=== PATIENT | female | born 1990 | race Caucasian/White ===

== ENCOUNTER 2016-08-01 12:42 | Emergency (ER) | payer MEDICARE, MEDICAID ==
--- NOTE | 2016-08-01 13:19 | ER Document Report ---
ED Medical Screen (RME) - General Stated Complaint: HEADACHE Notes: 26 yo female c/o headache, cough, cold symptoms x 3 days. no fever. vomiting last week. TRAVEL OUTSIDE OF THE [place] IN LAST 30 DAYS: No - Related Data Allergies/Adverse Reactions: diclofenac [Diclofenac] Allergy (Unknown, Verified 01/05/15 22:50) methylphenidate HCl [From Ritalin] Allergy (Unknown, Verified 01/05/15 22:50) morphine [Morphine] Allergy (Unknown, Verified 01/05/15 22:50) Penicillins Allergy (Unknown, Verified 01/05/15 22:50) risperidone [From Risperdal M-TAB] Allergy (Unknown, Verified 01/05/15 22:50) Sulfa (Sulfonamide Antibiotics) Allergy (Unknown, Verified 01/05/15 22:50) acetaminophen Allergy (Verified 12/29/15 12:17) Past Medical History Neurological Medical History: Reports: Hx Migraine, Hx Seizures Skin Medical History: Denies Hx MRSA Psychiatric Medical History: Reports: Hx Anxiety, Hx Attention Deficit Hyperactivity Disorder, Hx Bipolar Disorder, Hx Depression, Hx Obsessive Compulsive Disorder, Hx Post Traumatic Stress Disorder, Hx Schizophrenia Traumatic Medical History: Reports: Hx Traumatic Brain Injury Infectious Medical History: Denies: Hx MRSA Past Surgical History: Reports: Hx Gynecologic Surgery, Hx Oral Surgery - Immunizations Immunizations up to date: Yes Hx Diphtheria, Pertussis, Tetanus Vaccination: Yes Physical Exam - Vital signs Vitals: Temp Pulse Resp BP Pulse Ox 98.1 F 70 20 109/56 L 100 08/01/16 13:16 08/01/16 13:16 08/01/16 13:16 08/01/16 13:16 08/01/16 13:16 Course - Vital Signs Vital signs: Temp Pulse Resp BP Pulse Ox 98.1 F 70 20 109/56 L 100 08/01/16 13:16 08/01/16 13:16 08/01/16 13:16 08/01/16 13:16 08/01/16 13:16
[2016-08-01] MEDS ORDERED: IBUPROFEN 600 MG TABLET PO ONE (16:14)
--- NOTE | 2016-08-01 16:24 | ER Document Report ---
ED General - General Chief Complaint: Headache Stated Complaint: HEADACHE Time seen by provider: 15:00 Mode of Arrival: Ambulatory Information source: Patient Notes: 26 year old female with one month history of diffuse body aches and mild headache anterior facial pain and nasal congestion sore throat earache nonproductive cough. For the first 2 weeks of symptoms she also says she had nausea vomiting diarrhea and says she has persistent nausea now but no further vomiting. Last measurement was 2 months ago and she doesn't know she is . She denies any specific chest abdominal or back pain. She denies dysuria. She denies vaginal bleeding or discharge. Physical Exam: General: Alert, appears well. HEENT: Normocephalic. Atraumatic. PERRLA. Extraocular movements intact. Tympanic membranes and canals clear. Oropharynx clear. Frontal and maxillary sinuses not tender to palpation Neck: Supple. Non-tender. No adenopathy no nuchal rigidity no stridor or hoarseness or drooling Respiratory: No respiratory distress. Clear and equal breath sounds bilaterally. Cardiovascular: Regular rate and rhythm. Abdominal: Normal Inspection. Soft, non-tender. No distension. Normal Bowel Sounds. Back: Non-tender. No deformity or step off. Extremities: Moves all four extremities. Upper extremities: Normal inspection. Non-tender. Normal color. Normal ROM. Normal temperature. Lower extremities: Normal inspection. Non-tender. No edema. Normal color. Normal ROM. Normal temperature. 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 Normal Mood. Skin: Warm. Dry. Normal color. TRAVEL OUTSIDE OF THE [place] IN LAST 30 DAYS: No - Related Data Allergies/Adverse Reactions: diclofenac [Diclofenac] Allergy (Unknown, Verified 08/01/16 13:20) methylphenidate HCl [From Ritalin] Allergy (Unknown, Verified 08/01/16 13:20) morphine [Morphine] Allergy (Unknown, Verified 08/01/16 13:20) Penicillins Allergy (Unknown, Verified 08/01/16 13:20) risperidone [From Risperdal M-TAB] Allergy (Unknown, Verified 08/01/16 13:20) Sulfa (Sulfonamide Antibiotics) Allergy (Unknown, Verified 08/01/16 13:20) acetaminophen Allergy (Verified 08/01/16 13:20) Past Medical History - Social History Smoking Status: Current Every Day Smoker Chew tobacco use (# tins/day): No Frequency of alcohol use: None Drug Abuse: None Family History: Reviewed & Not Pertinent Patient has suicidal ideation: No Patient has homicidal ideation: No Neurological Medical History: Reports: Hx Migraine, Hx Seizures Renal/ Medical History: Denies: Hx Peritoneal Dialysis Skin Medical History: Denies Hx MRSA Psychiatric Medical History: Reports: Hx Anxiety, Hx Attention Deficit Hyperactivity Disorder, Hx Bipolar Disorder, Hx Depression, Hx Obsessive Compulsive Disorder, Hx Post Traumatic Stress Disorder, Hx Schizophrenia Traumatic Medical History: Reports: Hx Traumatic Brain Injury Infectious Medical History: Denies: Hx MRSA Past Surgical History: Reports: Hx Gynecologic Surgery, Hx Oral Surgery - Immunizations Immunizations up to date: Yes Hx Diphtheria, Pertussis, Tetanus Vaccination: Yes Review of Systems - Review of Systems Constitutional: See HPI EENT: See HPI Cardiovascular: denies: Chest pain Respiratory: See HPI Gastrointestinal: See HPI Genitourinary: denies: Burning, Dysuria Female Genitourinary: Last menstrual period - 2 months ago Musculoskeletal: See HPI Neurological/Psychological: denies: Weakness, Numbness Physical Exam - Vital signs Vitals: Temp Pulse Resp BP Pulse Ox 98.1 F 70 20 109/56 L 100 08/01/16 13:16 08/01/16 13:16 08/01/16 13:16 08/01/16 13:16 08/01/16 13:16 Course - Re-evaluation Re-evalutation: 08/01/16 16:22 Patient has symptoms most consistent with viral syndrome. She is reporting persistent nausea will provide her with prescription for Phenergan as needed for that and have her follow with her primary care physician. She reports using a variety of urgent cares locally - Vital Signs Vital signs: Temp Pulse Resp BP Pulse Ox 98.1 F 70 20 109/56 L 100 08/01/16 13:16 08/01/16 13:16 08/01/16 13:16 08/01/16 13:16 08/01/16 13:16 - Laboratory Laboratory results interpreted by me: 08/01/16 16:21 Strep test and test are negative Discharge - Discharge Clinical Impression: Nausea, Viral syndrome Condition: Stable Disposition: HOME, SELF-CARE Instructions: Viral Syndrome ([facility]), Antinausea Medication ([facility]) Prescriptions: Promethazine HCl [Phenergan 25 mg Tablet] 1 tab PO Q6H PRN #15 tablet PRN Reason: Referrals: CECELIA SHARP MD [ACTIVE STAFF] - Follow up as needed
[2016-08-01 16:33] VITALS: BP 123/60
== END 2016-08-01 16:33 | disposition home or self-care (01) ==
LOC: ER 12:42
DX: B34.9 Viral infection, unspecified (principal); R11.0 Nausea; R51 Headache; R09.81 Nasal congestion; J02.9 Acute pharyngitis, unspecified; H92.09 Otalgia, unspecified ear; R05 Cough; R19.7 Diarrhea, unspecified; F17.200 Nicotine dependence, unspecified, uncomplicated; Z88.6 Allergy status to analgesic agent; Z88.0 Allergy status to penicillin; Z88.5 Allergy status to narcotic agent; Z88.2 Allergy status to sulfonamides; Z88.8 Allergy status to other drugs, medicaments and biological substances
CPT/HCPCS: 99284; 87070; 87880; 81025; 87077; A9270

== ENCOUNTER 2016-09-10 18:54 | Emergency (ER) | payer MEDICARE, MEDICAID ==
--- NOTE | 2016-09-10 20:45 | EKG REPORT ---
SEVERITY:- NORMAL ECG - SINUS RHYTHM : Confirmed by: Janette Verduzco 10-Sep-2016 20:45:12
[2016-09-10] MEDS ORDERED: IBUPROFEN 800 MG TABLET PO ONE (20:48)
[2016-09-10] MEDS ORDERED: ONDANSETRON 4 MG TAB.RAPDIS PO ONE (20:48)
--- NOTE | 2016-09-10 20:48 | ER Document Report ---
ED Medical Screen (RME) - General Stated Complaint: DIFFICULTY BREATHING/CHEST PAIN Time seen by provider: 20:45 Mode of Arrival: Ambulatory Information source: Patient Notes: 26-year-old female complaining of generalized body pain, a bad migraine, patient will dizziness, back pain, intermittent cough, and fever. The symptoms started at 3:00 this morning. She had a flu shot. No dysuria. I have greeted and performed a rapid initial assessment of this patient. A comprehensive ED assessment, evaluation of the patient, analysis of test results , and completion of the medical decision making process will be conducted by additional ED providers. TRAVEL OUTSIDE OF THE [place] IN LAST 30 DAYS: No - Related Data Allergies/Adverse Reactions: diclofenac [Diclofenac] Allergy (Unknown, Verified 08/01/16 13:20) methylphenidate HCl [From Ritalin] Allergy (Unknown, Verified 08/01/16 13:20) morphine [Morphine] Allergy (Unknown, Verified 08/01/16 13:20) Penicillins Allergy (Unknown, Verified 08/01/16 13:20) risperidone [From Risperdal M-TAB] Allergy (Unknown, Verified 08/01/16 13:20) Sulfa (Sulfonamide Antibiotics) Allergy (Unknown, Verified 08/01/16 13:20) acetaminophen Allergy (Verified 08/01/16 13:20) Past Medical History Neurological Medical History: Reports: Hx Migraine, Hx Seizures Renal/ Medical History: Denies: Hx Peritoneal Dialysis Skin Medical History: Denies Hx MRSA Psychiatric Medical History: Reports: Hx Anxiety, Hx Attention Deficit Hyperactivity Disorder, Hx Bipolar Disorder, Hx Depression, Hx Obsessive Compulsive Disorder, Hx Post Traumatic Stress Disorder, Hx Schizophrenia Traumatic Medical History: Reports: Hx Traumatic Brain Injury Infectious Medical History: Denies: Hx MRSA Past Surgical History: Reports: Hx Gynecologic Surgery, Hx Oral Surgery - Immunizations Immunizations up to date: Yes Hx Diphtheria, Pertussis, Tetanus Vaccination: Yes Physical Exam - Vital signs Vitals: Temp Pulse Resp BP Pulse Ox 99.1 F 105 H 18 120/70 99 09/10/16 19:30 09/10/16 19:30 09/10/16 19:30 09/10/16 19:30 09/10/16 19:30 Course - Vital Signs Vital signs: Temp Pulse Resp BP Pulse Ox 99.1 F 105 H 18 120/70 99 09/10/16 19:30 09/10/16 19:30 09/10/16 19:30 09/10/16 19:30 09/10/16 19:30
[2016-09-10 21:48] LABS: APPEARANCE,URINE SLIGHTLY-CLOUDY; BILIRUBIN,URINE NEGATIVE (NEGATIVE); GLUCOSE, URINE NEGATIVE (NEGATIVE); KETONES,URINE NEGATIVE (NEGATIVE); LEUKOCYTE ESTERASE,URINE NEGATIVE (NEGATIVE); NITRITE,URINE NEGATIVE (NEGATIVE); PROTEIN,URINE NEGATIVE (NEGATIVE); URINE SPECIFIC GRAVITY 1.027; UROBILINOGEN,URINE NEGATIVE mg/dL (<2.0)
[2016-09-10] MEDS ORDERED: PROMETHAZINE HCL INJ 25 MG/1 ML VIAL IM ONE (22:55)
[2016-09-10] MEDS ORDERED: OSELTAMIVIR PHOSPHATE 75 MG CAPSULE PO ONE (22:55)
--- NOTE | 2016-09-10 22:55 | ER Document Report ---
ED General Pain - General Mode of Arrival: Ambulatory Information source: Patient TRAVEL OUTSIDE OF THE [place] IN LAST 30 DAYS: No - HPI Patient complains to provider of: body pain Associated symptoms: Other - See above <IRINA RICE - Last Filed: 09/10/16 23:57> <YOSELIN MACDONALD - Last Filed: 09/11/16 05:05> - General Chief Complaint: Pain All Over Stated Complaint: body pain Notes: Patient is a 26 year old female, with a past medical history including anxiety and bipolar disorder, who presents to the emergency department complaining of general all over body pain onset today. Patient also complains of difficulty breathing, chest pain, and photophobia. Patient refuses to have the lights on in exam room stating that her head hurts when they are on. (IRINA RICE) - Related Data Allergies/Adverse Reactions: diclofenac [Diclofenac] Allergy (Unknown, Verified 09/10/16 20:46) methylphenidate HCl [From Ritalin] Allergy (Unknown, Verified 09/10/16 20:46) morphine [Morphine] Allergy (Unknown, Verified 09/10/16 20:46) Penicillins Allergy (Unknown, Verified 09/10/16 20:46) risperidone [From Risperdal M-TAB] Allergy (Unknown, Verified 09/10/16 20:46) Sulfa (Sulfonamide Antibiotics) Allergy (Unknown, Verified 09/10/16 20:46) acetaminophen Allergy (Verified 09/10/16 20:46) Past Medical History - General Information source: Patient - Social History Smoking Status: Current Every Day Smoker Frequency of alcohol use: Occasional Drug Abuse: Marijuana Family History: Reviewed & Not Pertinent Patient has suicidal ideation: No Patient has homicidal ideation: No Neurological Medical History: Reports: Hx Migraine, Hx Seizures Psychiatric Medical History: Reports: Hx Anxiety, Hx Attention Deficit Hyperactivity Disorder, Hx Bipolar Disorder, Hx Depression, Hx Obsessive Compulsive Disorder, Hx Post Traumatic Stress Disorder, Hx Schizophrenia Traumatic Medical History: Reports: Hx Traumatic Brain Injury Past Surgical History: Reports: Hx Gynecologic Surgery, Hx Oral Surgery - Immunizations Immunizations up to date: Yes Hx Diphtheria, Pertussis, Tetanus Vaccination: Yes <IRINA RICE - Last Filed: 09/10/16 23:57> Review of Systems - Review of Systems Constitutional: See HPI, Malaise EENT: No symptoms reported Cardiovascular: See HPI, Chest pain Respiratory: See HPI, Other - Difficulty breathing Gastrointestinal: No symptoms reported Genitourinary: No symptoms reported Female Genitourinary: No symptoms reported Musculoskeletal: No symptoms reported Skin: No symptoms reported Hematologic/Lymphatic: No symptoms reported Neurological/Psychological: See HPI, Headaches - photophobia -: Yes All other systems reviewed and negative <IRINA RICE - Last Filed: 09/10/16 23:57> Physical Exam - Vital signs Interpretation: Tachycardic - General General appearance: Appears well, Alert - HEENT Head: Normocephalic, Atraumatic - Respiratory Respiratory status: No respiratory distress Breath sounds: Normal - Cardiovascular Rhythm: Tachycardia Heart sounds: Normal auscultation Murmur: No - Back Back: Normal, Nontender - Extremities General upper extremity: Normal inspection General lower extremity: Normal inspection - Neurological Neuro grossly intact: Yes Cognition: Normal Orientation: AAOx4 [place] Coma Scale Eye Opening: Spontaneous [place] Coma Scale Verbal: Oriented [place] Coma Scale Motor: Obeys Commands [place] Coma Scale Total: 15 Speech: Normal - Psychological Associated symptoms: Normal affect, Normal mood - Skin Skin Temperature: Warm Skin Moisture: Dry Skin Color: Normal <IRINA RICE - Last Filed: 09/10/16 23:57> Course <IRINA RICE - Last Filed: 09/10/16 23:57> - Diagnostic Test Radiology reviewed: Reports reviewed <YOSELIN MACDONALD - Last Filed: 09/11/16 05:05> - Re-evaluation Re-evalutation: 09/11/16 Patient with influenza. Symptoms are consistent with this. Patient will be started on Tamiflu as her symptoms started today. Advised take Tylenol and ibuprofen for fever. Patient is to follow-up with her doctor as needed. Stable for discharge. Return if any worsening or concerning symptoms. (YOSELIN MACDONALD) - Vital Signs Vital signs: Temp Pulse Resp BP Pulse Ox 100.1 F 73 16 112/63 100 09/11/16 00:36 09/11/16 00:36 09/11/16 00:36 09/11/16 00:36 09/11/16 00:36 Discharge <IRINA RICE - Last Filed: 09/10/16 23:57> <YOSELIN MACDONALD - Last Filed: 09/11/16 05:05> - Discharge Clinical Impression: Influenza A Condition: Stable Disposition: HOME, SELF-CARE Instructions: Influenza ([facility]), Fever ([facility]) Prescriptions: Ondansetron [Zofran Odt 4 mg Tablet] 1 - 2 tab PO Q4H PRN #15 tab.rapdis PRN Reason: For Nausea/Vomiting Oseltamivir Phosphate [Tamiflu 75 mg Capsule] 75 mg PO BID #10 capsule Promethazine HCl [Phenergan 25 mg Tablet] 1 tab PO Q6H PRN #15 tablet PRN Reason: Forms: Return to Work Scribe Attestation: 09/11/16 05:05 I personally performed the services described in the documentation, reviewed and edited the documentation which was dictated to the scribe in my presence, and it accurately records my words and actions. (YOSELIN MACDONALD) Scribe Documentation - Scribe Written by Scrruize:: tayler Russell, 09/11/16, 0000 acting as scribe for :: Oneil <IRINA RICE - Last Filed: 09/10/16 23:57>
[2016-09-10] MEDS ORDERED: PROMETHAZINE HCL INJ 25 MG/1 ML VIAL ONE (23:31)
[2016-09-11] MEDS ORDERED: KETOROLAC TROMETHAMINE 60 MG/2 ML SDV IM ONE (00:19)
[2016-09-11 00:37] VITALS: BP 112/63
== END 2016-09-11 00:46 | disposition home or self-care (01) ==
LOC: ER 18:54
DX: J11.1 Influenza due to unidentified influenza virus with other respiratory manifestations (principal); R06.00 Dyspnea, unspecified; R07.9 Chest pain, unspecified; H53.149 Visual discomfort, unspecified; R51 Headache; R00.0 Tachycardia, unspecified; F17.200 Nicotine dependence, unspecified, uncomplicated; Z88.3 Allergy status to other anti-infective agents; Z88.8 Allergy status to other drugs, medicaments and biological substances; Z88.0 Allergy status to penicillin; Z88.6 Allergy status to analgesic agent; Z88.2 Allergy status to sulfonamides
CPT/HCPCS: 93005; 99284; 96372; 87086; 81001; 87804; 71020; 93010; J1885

== ENCOUNTER 2016-12-17 20:37 | Emergency (ER) | payer MEDICARE, MEDICAID ==
--- NOTE | 2016-12-17 22:14 | RADIOLOGY REPORT (SQ) ---
EXAM DESCRIPTION: ANKLE LEFT COMPLETE COMPLETED DATE/TIME: 12/17/2016 9:55 pm REASON FOR STUDY: pain s/p injury COMPARISON: None. NUMBER OF VIEWS: Three views. TECHNIQUE: AP, lateral, and oblique radiographic images acquired of the left ankle. LIMITATIONS: None. FINDINGS: MINERALIZATION: Normal. BONES: No acute fracture or dislocation. No worrisome bone lesions. JOINTS: No effusions. SOFT TISSUES: No soft tissue swelling. No foreign body. OTHER: No other significant finding. IMPRESSION: NO RADIOGRAPHIC EVIDENCE OF ACUTE INJURY. TECHNICAL DOCUMENTATION: JOB ID: [id number] [employer]- All Rights Reserved
--- NOTE | 2016-12-17 22:16 | RADIOLOGY REPORT (SQ) ---
EXAM DESCRIPTION: FOOT LEFT COMPLETE COMPLETED DATE/TIME: 12/17/2016 9:55 pm REASON FOR STUDY: pain s/p injury COMPARISON: None. NUMBER OF VIEWS: Three views. TECHNIQUE: AP, lateral and oblique radiographic images acquired of the left foot. LIMITATIONS: None. FINDINGS: MINERALIZATION: Normal. BONES: No acute fracture or dislocation. No worrisome bone lesions. JOINTS: No effusions. SOFT TISSUES: No soft tissue swelling. No foreign body. OTHER: No other significant finding. IMPRESSION: NO RADIOGRAPHIC EVIDENCE OF ACUTE INJURY. TECHNICAL DOCUMENTATION: JOB ID: [id number] [employer]- All Rights Reserved
[2016-12-17] MEDS ORDERED: NAPROXEN 250 MG TABLET PO ONE (23:14)
--- NOTE | 2016-12-17 23:15 | ER Document Report ---
HPI - HPI Patient complains to provider of: left foot pain Pain Level: 5 Context: Patient is a 26-year-old female who comes emergency department with chief complaint of left foot/ankle injury. Patient states she accidentally inverted her foot while she was playing roughhousing with her boyfriend. Patient states she felt a pop and she states that she feels like the area is swollen and she has some numbness in her foot. Patient denies any other injuries. - CARDIOVASCULAR Cardiovascular: DENIES: Chest pain - REPRODUCTIVE Reproductive: DENIES: : - DERM Skin Color: Normal, [place] Past Medical History - General Information source: Patient - Social History Smoking Status: Current Every Day Smoker Frequency of alcohol use: Occasional Drug Abuse: None Lives with: Family Family History: Reviewed & Not Pertinent Neurological Medical History: Reports: Hx Migraine, Hx Seizures Renal/ Medical History: Denies: Hx Peritoneal Dialysis Skin Medical History: Denies Hx MRSA Psychiatric Medical History: Reports: Hx Anxiety, Hx Attention Deficit Hyperactivity Disorder, Hx Bipolar Disorder, Hx Depression, Hx Obsessive Compulsive Disorder, Hx Post Traumatic Stress Disorder, Hx Schizophrenia Traumatic Medical History: Reports: Hx Traumatic Brain Injury Infectious Medical History: Denies: Hx MRSA Past Surgical History: Reports: Hx Gynecologic Surgery, Hx Oral Surgery - Immunizations Immunizations up to date: Yes Hx Diphtheria, Pertussis, Tetanus Vaccination: Yes Vertical Provider Document - CONSTITUTIONAL General Appearance: No Apparent Distress, Thin - INFECTION CONTROL TRAVEL OUTSIDE OF THE [place] IN LAST 30 DAYS: No - HEENT HEENT: Atraumatic, Normocephalic - NECK Neck: Normal Inspection - RESPIRATORY Respiratory: Breath Sounds Normal, No Respiratory Distress O2 Sat by Pulse Oximetry: 100 - CARDIOVASCULAR Cardiovascular: Regular Rate, Regular Rhythm - GI/ABDOMEN Gastrointestinal: Abdomen Soft, Abdomen Non-Tender - MUSCULOSKELETAL/EXTREMETIES Musculoskeletal/Extremeties: Tender - Unremarkable lower extremity exam otherwise. There is general tenderness over the dorsal aspect of the left foot , no swelling noted, normal distal neurovascular exam except patient states that she feels numbness in each place on the foot she is touched. Course - Re-evaluation Re-evalutation: Patient is fairly dramatic and yells whenever I touch the foot, I do not appreciate any soft tissue swelling, range of motion deficit; capillary refill is normal, pulse intact, LE exam generally unremarkable. X-ray imaging shows no acute abnormalities. Patient will be placed in splint for comfort, given crutches, given instructions for treatment of sprain, discussed these in detail with patient, she states understanding and agreement. - Vital Signs Vital signs: Temp Pulse Resp BP Pulse Ox 98.4 F 90 20 126/78 H 100 12/17/16 21:04 12/17/16 21:04 12/17/16 21:04 12/17/16 21:04 12/17/16 21:04 - Diagnostic Test Radiology reviewed: Image reviewed, Reports reviewed Procedures - Immobilization Left ankle Pre-Proc Neuro Vasc Exam: Normal Immobilizer type: Ankle stirrup Performed by: RN Post-Proc Neuro Vasc Exam: Normal Alignment checked and good: Yes Discharge - Discharge Clinical Impression: Left ankle injury Qualifiers: Encounter type: initial encounter Qualified Code(s): S99.912A - Unspecified injury of left ankle, initial encounter Condition: Stable Disposition: HOME, SELF-CARE Additional Instructions: X-rays show no fracture or concerning abnormality. Examination is consistent with ankle sprain. Ice, elevate when possible, take over the counter anti-inflammatory, use the crutches for the first 3 days. If symptoms continue follow up with Orthopedics. Return to the ED for any concerning symptoms. Prescriptions: Naproxen [Naprosyn 375 Mg Tablet] 375 mg PO BID #20 tablet
[2016-12-18 00:08] VITALS: BP 109/64
== END 2016-12-18 00:08 | disposition home or self-care (01) ==
LOC: ER 20:37
DX: S99.912A Unspecified injury of left ankle, initial encounter (principal); M79.672 Pain in left foot; R20.0 Anesthesia of skin; X50.0XXA Overexertion from strenuous movement or load, initial encounter; Y93.83 Activity, rough housing and horseplay; F17.200 Nicotine dependence, unspecified, uncomplicated
CPT/HCPCS: 99283; 73610; 73630; L4350; A9270

== ENCOUNTER 2017-01-27 17:38 | Emergency (ER) | payer MEDICARE, MEDICAID ==
[2017-01-27] MEDS ORDERED: DIPHENHYDRAMINE HCL 50 MG/ML VIAL IV ONE (18:03)
[2017-01-27] MEDS ORDERED: DEXAMETHASONE SOD PHOS INJ 10 MG/1 ML VIAL IV ONE (18:04)
[2017-01-27] MEDS ORDERED: FAMOTIDINE INJ/PF 20 MG/2 ML SDV IV ONE (18:04)
--- NOTE | 2017-01-27 18:08 | ER Document Report ---
ED Allergic Reaction - General Chief Complaint: Allergic Reaction Stated Complaint: POSSIBLE ALLERGIC REACTION Time Seen by Provider: 01/27/17 17:57 Mode of Arrival: Ambulatory Information source: Patient TRAVEL OUTSIDE OF THE [place] IN LAST 30 DAYS: No - HPI Onset: This morning - NOTED RASH THIS A.M. AFTER SHOWERING, ONSET OF ITCHING 3 HRS AGO, INCREASING ITCHING DISCOMFORT Onset/Duration: Gradual Quality of pain: No pain Severity: Moderate Identified cause: No Skin rash / itching: Trunk, Extremities, Diffuse Swelling: Throat - FEELS SWOLLEN Associated symptoms: Lightheaded Similar symptoms previously: Yes - NOT RECENT Recently seen / treated by doctor: No - Related Data Allergies/Adverse Reactions: diclofenac [Diclofenac] Allergy (Unknown, Verified 09/10/16 20:46) methylphenidate HCl [From Ritalin] Allergy (Unknown, Verified 09/10/16 20:46) morphine [Morphine] Allergy (Unknown, Verified 09/10/16 20:46) Penicillins Allergy (Unknown, Verified 09/10/16 20:46) risperidone [From Risperdal M-TAB] Allergy (Unknown, Verified 09/10/16 20:46) Sulfa (Sulfonamide Antibiotics) Allergy (Unknown, Verified 09/10/16 20:46) acetaminophen Allergy (Verified 09/10/16 20:46) Past Medical History - General Information source: Patient - Social History Smoking Status: Current Every Day Smoker Cigarette use (# per day): Yes Chew tobacco use (# tins/day): No Smoking Education Provided: No Frequency of alcohol use: Occasional Drug Abuse: None Lives with: Spouse/Significant other Family History: Reviewed & Not Pertinent Patient has suicidal ideation: No Patient has homicidal ideation: No - Past Medical History Cardiac Medical History: Reports: None Pulmonary Medical History: Reports: None Neurological Medical History: Reports: Hx Migraine, Hx Seizures Endocrine Medical History: Reports: None Renal/ Medical History: Reports: None. Denies: Hx Peritoneal Dialysis Malignancy Medical History: Reports: None GI Medical History: Reports: None Musculoskeltal Medical History: Reports None Skin Medical History: Denies Hx MRSA Psychiatric Medical History: Reports: Hx Anxiety, Hx Attention Deficit Hyperactivity Disorder, Hx Bipolar Disorder, Hx Depression, Hx Obsessive Compulsive Disorder, Hx Post Traumatic Stress Disorder, Hx Schizophrenia Traumatic Medical History: Reports: Hx Traumatic Brain Injury Infectious Medical History: Denies: Hx MRSA Past Surgical History: Reports: Hx Gynecologic Surgery, Hx Oral Surgery - Immunizations Immunizations up to date: Yes Hx Diphtheria, Pertussis, Tetanus Vaccination: Yes Review of Systems - Review of Systems Constitutional: Weakness EENT: No symptoms reported Cardiovascular: Lightheaded Respiratory: Short of breath - SLIGHT Gastrointestinal: No symptoms reported Genitourinary: No symptoms reported Female Genitourinary: No symptoms reported Musculoskeletal: No symptoms reported Skin: See HPI Neurological/Psychological: No symptoms reported Physical Exam - Vital signs Vitals: Temp Pulse Resp BP Pulse Ox 98.4 F 80 18 115/65 96 01/27/17 17:42 01/27/17 17:42 01/27/17 17:42 01/27/17 17:42 01/27/17 17:42 Interpretation: Normal. No: Tachycardic, Hypoxic, Tachypneic - General General appearance: Appears well, Alert, Anxious In distress: None - HEENT Head: Normocephalic Eyes: Normal Conjunctiva: Normal Ears: Normal Nasal: Normal Mouth/Lips: Normal Mucous membranes: Normal Pharynx: Normal Neck: Normal - Respiratory Respiratory status: No respiratory distress Breath sounds: Normal - Cardiovascular Rhythm: Regular Heart sounds: Normal auscultation Murmur: No - Abdominal Inspection: Normal Distension: No distension Bowel sounds: Normal - Back Back: Normal - Extremities General upper extremity: Normal inspection General lower extremity: Normal inspection - Neurological Neuro grossly intact: Yes Cognition: Normal Orientation: AAOx4 - Psychological Associated symptoms: Normal affect, Normal mood - Skin Skin Temperature: Warm Skin Moisture: Dry Skin Color: Normal Skin Turgor: Elastic Skin irregularity: other - SCORES OF ROUND ERYTHEMATOUS LESIONS WIDELY SCATTERED ON EXTREMITIES AND TORSO, ROUND, VARIOUS SIZES, SLIGHTLY NODULAR. Location of irregularity: Generalized Character of irregularity: Macular, Erythematous. negative: Vesicular, Petechial, Urticarial Irregularity with: Tenderness, Inflammation Course - Vital Signs Vital signs: Temp Pulse Resp BP Pulse Ox 98.4 F 80 23 H 127/85 H 99 01/27/17 17:42 01/27/17 17:42 01/27/17 19:01 01/27/17 19:00 01/27/17 19:01 - Laboratory Result Diagrams: 01/27/17 19:05 01/27/17 19:05 Laboratory results interpreted by me: 01/27/17 01/27/17 18:05 19:05 Chloride 108 H Urine Ketones TRACE H Discharge - Discharge Clinical Impression: Allergic reaction Qualifiers: Encounter type: initial encounter Qualified Code(s): T78.40XA - Allergy, unspecified, initial encounter Condition: Stable Disposition: HOME, SELF-CARE Instructions: Acute Allergic Reaction ([facility]), Intravenous (IV) Fluids ([facility]), Use of Diphenhydramine, Corticosteroid Medication ([facility]) Additional Instructions: TAKE BENADRYL, 25-50 mg EVERY 4 TO 6 HOURS IF NEEDED FOR ITCHING. APPLY SMALL AMOUNT OF TRIAMCINOLONE CREAM TO ITCHY AREAS OF SKIN 3 OR 4 TIMES A DAY IF NEEDED. TRY TO AVOID SCRATCHING, THIS WILL CAUSE MORE INFLAMMATION AND ACTUALLY INCREASE ITCHING. RETURN TO E.R. IF PROBLEMS. Prescriptions: Triamcinolone Acetonide 15 gm TP TID #15 cream.gm.
[2017-01-27 18:35] LABS: APPEARANCE,URINE CLEAR; BILIRUBIN,URINE NEGATIVE (NEGATIVE); GLUCOSE, URINE NEGATIVE (NEGATIVE); KETONES,URINE TRACE mg/dL (NEGATIVE); LEUKOCYTE ESTERASE,URINE NEGATIVE (NEGATIVE); NITRITE,URINE NEGATIVE (NEGATIVE); PROTEIN,URINE NEGATIVE (NEGATIVE); UROBILINOGEN,URINE NEGATIVE mg/dL (<2.0)
[2017-01-27 19:21] LABS: ABSOLUTE BASOPHILS # (AUTO) 0.1 10^3/uL (0.0-0.2); ABSOLUTE EOSINOPHILS # (AUTO) 0.2 10^3/uL (0.0-0.6); ABSOLUTE MONOCYTES (AUTO) 0.4 10^3/uL (0.1-1.4); ABSOLUTE NEUT (AUTO) 4.6 10^3/uL (1.7-8.2); BASOPHILS % (AUTO) 0.7 % (0-2); EOSINOPHILS % (AUTO) 2.6 % (0-6); HEMATOCRIT 39.2 % (36.0-47.0); HEMOGLOBIN 13.3 g/dL (12.0-15.5); HGB HCT DIFFERENCE 0.7; MEAN CORPUSCULAR HEMOGLOBIN 31.7 pg (27.0-33.4); MEAN CORPUSCULAR VOLUME 93 fl (80-97); MONOCYTES % (AUTO) 6.1 % (3-13); RED BLOOD COUNT 4.21 10^6/uL (3.72-5.28); RED CELL DISTRIBUTION WIDTH 12.8 % (11.5-14.0); SEGMENTED NEUTROPHILS % (AUTO) 63.6 % (42-78); WHITE BLOOD COUNT 7.3 10^3/uL (4.0-10.5)
[2017-01-27 19:42] LABS: ALANINE AMINOTRANSFERASE 37 U/L (9-52); ALBUMIN 4.3 g/dL (3.5-5.0); ALKALINE PHOSPHATASE 68 U/L (38-126); ANION GAP 11 (5-19); ASPARTATE AMINO TRANSFERASE 23 U/L (14-36); BILIRUBIN,DIRECT 0.3 mg/dL (0.0-0.4); BILIRUBIN,TOTAL 0.7 mg/dL (0.2-1.3); BLOOD UREA NITROGEN 10 mg/dL (7-20); CALCIUM 9.4 mg/dL (8.4-10.2); CARBON DIOXIDE 23 mmol/L (22-30); CHLORIDE 108 mmol/L (98-107); CREATININE RESULT 0.68 mg/dL (0.52-1.25); GLUCOSE 86 mg/dL (75-110); POTASSIUM 3.8 mmol/L (3.6-5.0); SODIUM 141.9 mmol/L (137-145); TOTAL PROTEIN 7.4 g/dL (6.3-8.2)
[2017-01-27] MEDS ORDERED: DIAZEPAM 5 MG TABLET PO ONE (20:02)
[2017-01-27 20:48] VITALS: BP 124/79
== END 2017-01-27 20:45 | disposition home or self-care (01) ==
LOC: ER 17:38
DX: T78.40XA Allergy, unspecified, initial encounter (principal); R21 Rash and other nonspecific skin eruption; X58.XXXA Exposure to other specified factors, initial encounter; F17.210 Nicotine dependence, cigarettes, uncomplicated
CPT/HCPCS: 99283; 96374; 96375; 36415; 85025; 80053; 81001; A9270; J1200; S0028; J1100

== ENCOUNTER 2017-02-04 22:51 | Emergency (ER) | payer OTHER, MEDICARE, MEDICAID ==
[2017-02-04 23:22] VITALS: BP 123/67
[2017-02-05] MEDS ORDERED: DIPHENHYDRAMINE HCL 50 MG CAPSULE PO ONE (00:31)
[2017-02-05] MEDS ORDERED: METOCLOPRAMIDE HCL 10 MG TABLET PO ONE (00:31)
--- NOTE | 2017-02-05 00:31 | ER Document Report ---
ED General - General Chief Complaint: Headache >24 hrs old Stated Complaint: HEAD INJURY Time Seen by Provider: 02/05/17 00:16 Notes: Patient is a pleasant 26-year-old female who said 3 days ago she was weeding and a small bubble hit her in the forehead. She was briefly days. She has had some photophobia and headache since. No vomiting. No fevers. She did have a area of swelling to her forehead which has since gone away. She also says she can feel different over her forehead. No other complaints at this time. TRAVEL OUTSIDE OF THE [place] IN LAST 30 DAYS: No - Related Data Allergies/Adverse Reactions: diclofenac [Diclofenac] Allergy (Unknown, Verified 02/04/17 23:19) methylphenidate HCl [From Ritalin] Allergy (Unknown, Verified 02/04/17 23:19) morphine [Morphine] Allergy (Unknown, Verified 02/04/17 23:19) Penicillins Allergy (Unknown, Verified 02/04/17 23:19) risperidone [From Risperdal M-TAB] Allergy (Unknown, Verified 02/04/17 23:19) Sulfa (Sulfonamide Antibiotics) Allergy (Unknown, Verified 02/04/17 23:19) acetaminophen Allergy (Verified 02/04/17 23:19) Past Medical History - Social History Smoking Status: Unknown if Ever Smoked Frequency of alcohol use: None Drug Abuse: None Family History: Reviewed & Not Pertinent Neurological Medical History: Reports: Hx Migraine, Hx Seizures Renal/ Medical History: Denies: Hx Peritoneal Dialysis Skin Medical History: Denies Hx MRSA Psychiatric Medical History: Reports: Hx Anxiety, Hx Attention Deficit Hyperactivity Disorder, Hx Bipolar Disorder, Hx Depression, Hx Obsessive Compulsive Disorder, Hx Post Traumatic Stress Disorder, Hx Schizophrenia Traumatic Medical History: Reports: Hx Traumatic Brain Injury Infectious Medical History: Denies: Hx MRSA Past Surgical History: Reports: Hx Gynecologic Surgery, Hx Oral Surgery - Immunizations Immunizations up to date: Yes Hx Diphtheria, Pertussis, Tetanus Vaccination: Yes Review of Systems - Review of Systems Notes: My Normal Review Basic REVIEW OF SYSTEMS: CONSTITUTIONAL : Denies fever, chills, or sweats. Denies recent illness. CARDIOVASCULAR: Denies chest pain. RESPIRATORY: Denies cough, cold, or chest congestion. Denies shortness of breath, difficulty breathing, or wheezing. GASTROINTESTINAL: Denies abdominal pain. Denies nausea, vomiting, or diarrhea. Denies constipation. MUSCULOSKELETAL: Denies neck or back pain or joint pain or swelling. SKIN: Denies rash or skin lesions. NEUROLOGICAL: Denies altered mental status or loss of consciousness. Intermittent headache. Denies weakness or paralysis or loss of use of either side. Denies problems with gait or speech. Denies sensory or motor loss. ALL OTHER SYSTEMS REVIEWED AND NEGATIVE. Physical Exam - Vital signs Vitals: Temp Pulse Resp BP Pulse Ox 97.7 F 72 20 123/67 100 02/04/17 23:19 02/04/17 23:19 02/04/17 23:19 02/04/17 23:19 02/04/17 23:19 - Notes Notes: General Appearance: Well nourished, alert, cooperative, no acute distress, no obvious discomfort. Vitals: reviewed, See vital signs table. Head: no swelling or tenderness to the head. The patient has no divot to palpation. The are she is concerned with is actulaay over one of her cranial sutures and is the same on the other side. Eyes: PERRL, EOMI, Conjuctiva clear Mouth: No decreasd moisture Abdomen: Normal BS, soft, No rigidity, No abdominal tenderness, No guarding, no rebound, no abdominal masses, no organomegaly Extremities: strength 5/5 in all extremities, good pulses in all extremities, no swelling or tenderness in the extremities, no edema. Skin: warm, dry, appropriate color, no rash Neuro: speech clear, oriented x 3, normal affect, responds appropriately to questions. Cranial nerves II through XII are intact. Distal sensation intact. Patient moves all extremities without difficulty. Course - Re-evaluation Re-evalutation: 02/05/17 06:17 Patient has findings consistent with concussion. I do not feel she is CT scan of her head that she is acting appropriately, has no loss consciousness, has no vomiting, and has no neurologic deficits. Patient encouraged to return to ER if she develops severe worsening headaches or vomiting. Patient agrees with plan and will be discharged home. Dictation of this chart was performed using voice recognition software; therefore, there may be some unintended grammatical errors. - Vital Signs Vital signs: Temp Pulse Resp BP Pulse Ox 97.7 F 72 20 123/67 100 02/04/17 23:19 02/04/17 23:19 02/04/17 23:19 02/04/17 23:19 02/04/17 23:19 Discharge - Discharge Clinical Impression: Concussion Qualifiers: Encounter type: initial encounter Loss of consciousness presence/duration: without LOC Qualified Code(s): S06.0X0A - Concussion without loss of consciousness, initial encounter Condition: Good Disposition: HOME, SELF-CARE Additional Instructions: Concussion You have suffered a concussion -- a temporary loss of certain brain functions due to a mild brain injury. The recovery is usually rapid and complete. The temporary problems occurring with a concussion can include loss of consciousness, dizziness, nausea, vomiting, and confusion. Repeat concussions can cause brain damage. In the future, avoid activities that will cause a blow to your head. Wear a helmet for sports such as snowboarding, biking, or skating. It's important that someone be with you for the first 24 hours. During this time, do not exercise or drive a vehicle. Do not take any pain medication stronger than acetaminophen unless prescribed by the physician. Any significant changes should be reported immediately to the physician. Signs of a problem may include: (1) Mental confusion (2) Incoordination or staggering (3) Repeated or forceful vomiting (4) Clear or bloody drainage from ear, mouth, or nose (5) Severe headache, not relieved by acetaminophen or prescribed pain medication (6) Failure to improve in 24 hours Please follow up with a doctor in 1 week for reevaluation. Do not drive or operate machinery when taking the prescribed medicaiton as it will make you drowsy. Prescriptions: Diphenhydramine HCl [Benadryl] 25 mg PO Q6 PRN #30 capsule PRN Reason: Metoclopramide HCl [Reglan 10 mg Tablet] 1 tab PO ASDIR PRN #25 tablet PRN Reason: Forms: Return to Work
== END 2017-02-05 00:50 | disposition home or self-care (01) ==
LOC: ER 22:51
DX: S06.0X0A Concussion without loss of consciousness, initial encounter (principal); R51 Headache; H53.149 Visual discomfort, unspecified; X58.XXXA Exposure to other specified factors, initial encounter
CPT/HCPCS: 99283

== ENCOUNTER 2017-02-18 08:15 | Emergency (ER) | payer MEDICARE, MEDICAID ==
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
[2017-02-18 09:41] LABS: APPEARANCE,URINE SLIGHTLY-CLOUDY; BILIRUBIN,URINE NEGATIVE (NEGATIVE); GLUCOSE, URINE NEGATIVE (NEGATIVE); KETONES,URINE NEGATIVE (NEGATIVE); LEUKOCYTE ESTERASE,URINE NEGATIVE (NEGATIVE); NITRITE,URINE NEGATIVE (NEGATIVE); PROTEIN,URINE NEGATIVE (NEGATIVE); URINE SPECIFIC GRAVITY 1.017; UROBILINOGEN,URINE NEGATIVE mg/dL (<2.0)
[2017-02-18 10:26] VITALS: BP 108/62
== END 2017-02-18 10:26 | disposition home or self-care (01) ==
LOC: ER 08:15
DX: M79.1 Myalgia (principal); T88.7XXA Unspecified adverse effect of drug or medicament, initial encounter; S09.90XA Unspecified injury of head, initial encounter; W22.8XXA Striking against or struck by other objects, initial encounter; Z79.899 Other long term (current) drug therapy; F17.210 Nicotine dependence, cigarettes, uncomplicated
CPT/HCPCS: 81001; 81025; 99283

== ENCOUNTER 2017-04-17 13:31 | Emergency (ER) | payer MEDICARE, MEDICAID ==
[2017-04-17 14:59] LABS: ABSOLUTE BASOPHILS # (AUTO) 0.1 10^3/uL (0.0-0.2); ABSOLUTE EOSINOPHILS # (AUTO) 0.3 10^3/uL (0.0-0.6); ABSOLUTE LYMPHOCYTES (AUTO) 1.7 10^3/uL (0.5-4.7); ABSOLUTE MONOCYTES (AUTO) 0.6 10^3/uL (0.1-1.4); ABSOLUTE NEUT (AUTO) 4.2 10^3/uL (1.7-8.2); BASOPHILS % (AUTO) 0.7 % (0-2); EOSINOPHILS % (AUTO) 3.9 % (0-6); HEMATOCRIT 42.6 % (36.0-47.0); HEMOGLOBIN 14.4 g/dL (12.0-15.5); HGB HCT DIFFERENCE 0.6; LYMPHOCYTES % (AUTO) 24.9 % (13-45); MEAN CORPUSCULAR HGB CONC 33.8 g/dL (32.0-36.0); MEAN CORPUSCULAR VOLUME 92 fl (80-97); MONOCYTES % (AUTO) 8.4 % (3-13); RED BLOOD COUNT 4.64 10^6/uL (3.72-5.28); RED CELL DISTRIBUTION WIDTH 12.7 % (11.5-14.0); SEGMENTED NEUTROPHILS % (AUTO) 62.1 % (42-78); WHITE BLOOD COUNT 6.7 10^3/uL (4.0-10.5)
[2017-04-17 15:46] LABS: APPEARANCE,URINE SLIGHTLY-CLOUDY; BILIRUBIN,URINE NEGATIVE (NEGATIVE); GLUCOSE, URINE NEGATIVE (NEGATIVE); KETONES,URINE NEGATIVE (NEGATIVE); LEUKOCYTE ESTERASE,URINE NEGATIVE (NEGATIVE); NITRITE,URINE NEGATIVE (NEGATIVE); PROTEIN,URINE NEGATIVE (NEGATIVE); URINE SPECIFIC GRAVITY 1.025; UROBILINOGEN,URINE NEGATIVE mg/dL (<2.0)
[2017-04-17 16:12] LABS: ALANINE AMINOTRANSFERASE 19 U/L (9-52); ALBUMIN 4.4 g/dL (3.5-5.0); ALKALINE PHOSPHATASE 55 U/L (38-126); ANION GAP 11 (5-19); ASPARTATE AMINO TRANSFERASE 19 U/L (14-36); BILIRUBIN,DIRECT 0.5 mg/dL (0.0-0.4); BILIRUBIN,TOTAL 1.1 mg/dL (0.2-1.3); BLOOD UREA NITROGEN 11 mg/dL (7-20); CALCIUM 9.7 mg/dL (8.4-10.2); CARBON DIOXIDE 29 mmol/L (22-30); CHLORIDE 105 mmol/L (98-107); CREATININE RESULT 0.66 mg/dL (0.52-1.25); GLUCOSE 75 mg/dL (75-110); POTASSIUM 4.4 mmol/L (3.6-5.0); SODIUM 144.9 mmol/L (137-145); TOTAL PROTEIN 7.2 g/dL (6.3-8.2)
--- NOTE | 2017-04-17 16:49 | ER Document Report ---
ED General - General Chief Complaint: Abdominal Pain Stated Complaint: FALL/LOW BACK PAIN,ABDOMINAL PAIN Time Seen by Provider: 04/17/17 14:13 Mode of Arrival: Ambulatory Information source: Patient Notes: Patient states that she had some vaginal bleeding today after falling in the shower. Patient states that she believes she is and is concerned because of the bleeding after the fall. She has some mild right hip pain from the fall. It is constant. It is worse with movement and better with rest. It does radiate on the right leg. It has been constant. She denies any abdominal pain or any other symptoms. TRAVEL OUTSIDE OF THE [place] IN LAST 30 DAYS: No - Related Data Allergies/Adverse Reactions: diclofenac [Diclofenac] Allergy (Unknown, Verified 04/17/17 13:45) methylphenidate HCl [From Ritalin] Allergy (Unknown, Verified 04/17/17 13:45) morphine [Morphine] Allergy (Unknown, Verified 04/17/17 13:45) Penicillins Allergy (Unknown, Verified 04/17/17 13:45) risperidone [From Risperdal M-TAB] Allergy (Unknown, Verified 04/17/17 13:45) Sulfa (Sulfonamide Antibiotics) Allergy (Unknown, Verified 04/17/17 13:45) acetaminophen Allergy (Verified 04/17/17 13:45) Past Medical History - General Information source: Patient - Social History Smoking Status: Current Every Day Smoker Chew tobacco use (# tins/day): No Frequency of alcohol use: Rare Family History: Reviewed & Not Pertinent Neurological Medical History: Reports: Hx Migraine, Hx Seizures Renal/ Medical History: Denies: Hx Peritoneal Dialysis Skin Medical History: Denies Hx MRSA Psychiatric Medical History: Reports: Hx Anxiety, Hx Attention Deficit Hyperactivity Disorder, Hx Bipolar Disorder, Hx Depression, Hx Obsessive Compulsive Disorder, Hx Post Traumatic Stress Disorder, Hx Schizophrenia Traumatic Medical History: Reports: Hx Traumatic Brain Injury Infectious Medical History: Denies: Hx MRSA Past Surgical History: Reports: Hx Gynecologic Surgery, Hx Oral Surgery - Immunizations Immunizations up to date: Yes Hx Diphtheria, Pertussis, Tetanus Vaccination: Yes Review of Systems - Review of Systems Constitutional: denies: Chills, Fever Cardiovascular: denies: Chest pain, Palpitations Respiratory: denies: Cough, Short of breath -: Yes All other systems reviewed and negative Physical Exam - Vital signs Vitals: Temp Pulse BP Pulse Ox 98.6 F 77 104/66 99 04/17/17 13:46 04/17/17 13:46 04/17/17 13:46 04/17/17 13:46 Interpretation: Normal - General General appearance: Appears well, Alert - HEENT Head: Normocephalic, Atraumatic Eyes: Normal Pupils: PERRL - Respiratory Respiratory status: No respiratory distress Chest status: Nontender Breath sounds: Normal Chest palpation: Normal - Cardiovascular Rhythm: Regular Heart sounds: Normal auscultation Murmur: No - Abdominal Inspection: Normal Distension: No distension Bowel sounds: Normal Tenderness: Nontender Organomegaly: No organomegaly - Back Back: Normal, Nontender - Extremities General upper extremity: Normal inspection, Nontender, Normal color, Normal ROM , Normal temperature General lower extremity: Normal inspection, Nontender, Normal color, Normal ROM , Normal temperature, Normal weight bearing. No: Pedrito's sign - Neurological Neuro grossly intact: Yes Cognition: Normal Orientation: AAOx4 Tammy Coma Scale Eye Opening: Spontaneous [place] Coma Scale Verbal: Oriented [place] Coma Scale Motor: Obeys Commands Tammy Coma Scale Total: 15 Speech: Normal Motor strength normal: LUE, RUE, LLE, RLE Sensory: Normal - Psychological Associated symptoms: Normal affect, Normal mood - Skin Skin Temperature: Warm Skin Moisture: Dry Skin Color: Normal Course - Vital Signs Vital signs: Temp Pulse Resp BP Pulse Ox 98.6 F 77 104/66 99 04/17/17 13:46 04/17/17 13:46 04/17/17 13:46 04/17/17 13:46 - Laboratory Result Diagrams: 04/17/17 14:42 04/17/17 14:42 Laboratory results interpreted by me: 04/17/17 04/17/17 14:42 15:21 Direct Bilirubin 0.5 H Urine Blood MODERATE H Discharge - Discharge Clinical Impression: Fall, Contusion of right hip, Vaginal bleeding Condition: Stable Disposition: HOME, SELF-CARE Instructions: Contusion ([facility]) Additional Instructions: Please follow-up with your primary care physician as soon as possible Referrals: AZAR STARK MD [COMMUNITY BASED STAFF] - Follow up as needed
[2017-04-17 17:00] VITALS: BP 118/73
== END 2017-04-17 16:58 | disposition home or self-care (01) ==
LOC: ER 13:31
DX: S70.01XA Contusion of right hip, initial encounter (principal); N93.9 Abnormal uterine and vaginal bleeding, unspecified; R10.9 Unspecified abdominal pain; M54.5 Low back pain; M25.551 Pain in right hip; F17.200 Nicotine dependence, unspecified, uncomplicated; W18.2XXA Fall in (into) shower or empty bathtub, initial encounter
CPT/HCPCS: 36415; 80053; 81001; 84702; 85025; 99284

== ENCOUNTER 2017-07-31 12:45 | Emergency (ER) | payer MEDICARE, MEDICAID ==
[2017-07-31] MEDS ORDERED: ONDANSETRON 4 MG TAB.RAPDIS PO ONE (14:58)
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
--- NOTE | 2017-07-31 15:41 | RADIOLOGY REPORT (SQ) ---
EXAM DESCRIPTION: CHEST PA/LAT COMPLETED DATE/TIME: 07/31/2017 3:26 pm REASON FOR STUDY: chest pain COMPARISON: 09/10/2016 EXAM PARAMETERS: NUMBER OF VIEWS: two views TECHNIQUE: Digital Frontal and Lateral radiographic views of the chest acquired. RADIATION DOSE: NA LIMITATIONS: Nipple piercing. FINDINGS: LUNGS AND PLEURA: No opacities, masses or pneumothorax. No pleural effusion. MEDIASTINUM AND HILAR STRUCTURES: No masses or contour abnormalities. HEART AND VASCULAR STRUCTURES: Heart normal size. No evidence for failure. BONES: No acute findings. HARDWARE: None in the chest. OTHER: No other significant finding. IMPRESSION: NO SIGNIFICANT RADIOGRAPHIC FINDING IN THE CHEST. TECHNICAL DOCUMENTATION: JOB ID: [id number] [employer]- All Rights Reserved
[2017-07-31 15:52] LABS: ABSOLUTE EOSINOPHILS # (AUTO) 0.2 10^3/uL (0.0-0.6); ABSOLUTE LYMPHOCYTES (AUTO) 2.2 10^3/uL (0.5-4.7); ABSOLUTE MONOCYTES (AUTO) 0.6 10^3/uL (0.1-1.4); ABSOLUTE NEUT (AUTO) 5.4 10^3/uL (1.7-8.2); BASOPHILS % (AUTO) 0.5 % (0-2); EOSINOPHILS % (AUTO) 2.4 % (0-6); HEMATOCRIT 42.5 % (36.0-47.0); HEMOGLOBIN 14.3 g/dL (12.0-15.5); LYMPHOCYTES % (AUTO) 26.1 % (13-45); MEAN CORPUSCULAR HEMOGLOBIN 30.7 pg (27.0-33.4); MEAN CORPUSCULAR HGB CONC 33.7 g/dL (32.0-36.0); MEAN CORPUSCULAR VOLUME 91 fl (80-97); MONOCYTES % (AUTO) 6.6 % (3-13); PLATELET COUNT 248 10^3/uL (150-450); RED BLOOD COUNT 4.67 10^6/uL (3.72-5.28); RED CELL DISTRIBUTION WIDTH 12.6 % (11.5-14.0); SEGMENTED NEUTROPHILS % (AUTO) 64.4 % (42-78); TOTAL CELLS COUNTED % (AUTO) 100 %; WHITE BLOOD COUNT 8.4 10^3/uL (4.0-10.5)
[2017-07-31 15:55] LABS: APPEARANCE,URINE CLEAR; BILIRUBIN,URINE NEGATIVE (NEGATIVE); COLOR,URINE YELLOW; GLUCOSE, URINE NEGATIVE (NEGATIVE); KETONES,URINE NEGATIVE (NEGATIVE); LEUKOCYTE ESTERASE,URINE NEGATIVE (NEGATIVE); NITRITE,URINE NEGATIVE (NEGATIVE); PROTEIN,URINE NEGATIVE (NEGATIVE); UROBILINOGEN,URINE NEGATIVE mg/dL (<2.0)
[2017-07-31 16:10] LABS: ALANINE AMINOTRANSFERASE 25 U/L (9-52); ALBUMIN 4.7 g/dL (3.5-5.0); ALKALINE PHOSPHATASE 59 U/L (38-126); ANION GAP 8 (5-19); ASPARTATE AMINO TRANSFERASE 18 U/L (14-36); BILIRUBIN,DIRECT 0.2 mg/dL (0.0-0.4); BILIRUBIN,TOTAL 0.7 mg/dL (0.2-1.3); BLOOD UREA NITROGEN 7 mg/dL (7-20); CALCIUM 9.9 mg/dL (8.4-10.2); CARBON DIOXIDE 27 mmol/L (22-30); CHLORIDE 105 mmol/L (98-107); GLUCOSE 86 mg/dL (75-110); LIPASE 278.8 U/L (23-300); POTASSIUM 4.5 mmol/L (3.6-5.0); SODIUM 140.4 mmol/L (137-145); TOTAL PROTEIN 7.4 g/dL (6.3-8.2)
[2017-07-31 16:13] LABS: URINE AMPHETAMINES SCREEN NEGATIVE; URINE BARBITURATES SCREEN NEGATIVE; URINE BENZODIAZEPINES SCREEN NEGATIVE; URINE COCAINE SCREEN NEGATIVE; URINE MARIJUANA (THC) SCREEN UNCONFIRMED POSITIVE; URINE METHADONE SCREEN NEGATIVE; URINE PHENCYCLIDINE SCREEN NEGATIVE
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
[2017-07-31 17:07] VITALS: BP 118/70
--- NOTE | 2017-08-01 11:54 | EKG REPORT ---
SEVERITY:- NORMAL ECG - SINUS RHYTHM : Confirmed by: Janette Verduzco 01-Aug-2017 11:53:18
== END 2017-07-31 17:01 | disposition home or self-care (01) ==
LOC: ER 12:45
DX: R11.2 Nausea with vomiting, unspecified (principal); R07.9 Chest pain, unspecified; R10.13 Epigastric pain; R10.816 Epigastric abdominal tenderness; R10.812 Left upper quadrant abdominal tenderness; F17.200 Nicotine dependence, unspecified, uncomplicated; Z88.3 Allergy status to other anti-infective agents; Z88.8 Allergy status to other drugs, medicaments and biological substances; Z88.5 Allergy status to narcotic agent; Z88.0 Allergy status to penicillin; Z88.2 Allergy status to sulfonamides; Z88.6 Allergy status to analgesic agent
CPT/HCPCS: 93005; 99284; 36415; 83690; 84703; 85025; 80053; 81001; 84484; 80307; 71046; 93010; A9270; S0119

== ENCOUNTER 2017-09-14 21:15 | Emergency (ER) | payer MEDICARE, MEDICAID ==
[2017-09-14] MEDS ORDERED: LORAZEPAM INJ 2 MG/1 ML VIAL IV ONE (21:32)
[2017-09-14 21:48] LABS: ABSOLUTE BASOPHILS # (AUTO) 0.1 10^3/uL (0.0-0.2); ABSOLUTE EOSINOPHILS # (AUTO) 0.1 10^3/uL (0.0-0.6); ABSOLUTE LYMPHOCYTES (AUTO) 2.7 10^3/uL (0.5-4.7); ABSOLUTE MONOCYTES (AUTO) 0.6 10^3/uL (0.1-1.4); ABSOLUTE NEUT (AUTO) 5.9 10^3/uL (1.7-8.2); BASOPHILS % (AUTO) 0.7 % (0-2); HEMATOCRIT 43.8 % (36.0-47.0); HEMOGLOBIN 14.9 g/dL (12.0-15.5); LYMPHOCYTES % (AUTO) 28.7 % (13-45); MEAN CORPUSCULAR HGB CONC 34.1 g/dL (32.0-36.0); MEAN CORPUSCULAR VOLUME 91 fl (80-97); MONOCYTES % (AUTO) 6.7 % (3-13); PLATELET COUNT 270 10^3/uL (150-450); RED BLOOD COUNT 4.81 10^6/uL (3.72-5.28); RED CELL DISTRIBUTION WIDTH 12.7 % (11.5-14.0); SEGMENTED NEUTROPHILS % (AUTO) 62.9 % (42-78); TOTAL CELLS COUNTED % (AUTO) 100 %; WHITE BLOOD COUNT 9.4 10^3/uL (4.0-10.5)
[2017-09-14 22:05] LABS: APPEARANCE,URINE CLEAR; BILIRUBIN,URINE NEGATIVE (NEGATIVE); COLOR,URINE YELLOW; GLUCOSE, URINE NEGATIVE (NEGATIVE); KETONES,URINE TRACE mg/dL (NEGATIVE); LEUKOCYTE ESTERASE,URINE NEGATIVE (NEGATIVE); NITRITE,URINE NEGATIVE (NEGATIVE); PROTEIN,URINE NEGATIVE (NEGATIVE); URINE SPECIFIC GRAVITY 1.021; UROBILINOGEN,URINE NEGATIVE mg/dL (<2.0)
[2017-09-14 22:08] LABS: ALANINE AMINOTRANSFERASE 34 U/L (9-52); ALBUMIN 5.1 g/dL (3.5-5.0); ALKALINE PHOSPHATASE 68 U/L (38-126); ANION GAP 14 (5-19); ASPARTATE AMINO TRANSFERASE 26 U/L (14-36); BILIRUBIN,DIRECT 0.4 mg/dL (0.0-0.4); BILIRUBIN,TOTAL 1.3 mg/dL (0.2-1.3); BLOOD UREA NITROGEN 11 mg/dL (7-20); CALCIUM 10.1 mg/dL (8.4-10.2); CARBON DIOXIDE 21 mmol/L (22-30); CHLORIDE 108 mmol/L (98-107); GLUCOSE 86 mg/dL (75-110); POTASSIUM 4.3 mmol/L (3.6-5.0); SODIUM 142.6 mmol/L (137-145); TOTAL PROTEIN 8.4 g/dL (6.3-8.2)
[2017-09-14 22:09] LABS: ACETAMINOPHEN < 10 ug/mL (10-30); ALCOHOL < 10 mg/dL (NONE DETECTED); SALICYLATE < 1.0 mg/dL (2.0-20.0)
[2017-09-14 22:18] LABS: URINE AMPHETAMINES SCREEN NEGATIVE; URINE BARBITURATES SCREEN NEGATIVE; URINE BENZODIAZEPINES SCREEN UNCONFIRMED POSITIVE; URINE COCAINE SCREEN UNCONFIRMED POSITIVE; URINE MARIJUANA (THC) SCREEN UNCONFIRMED POSITIVE; URINE METHADONE SCREEN NEGATIVE; URINE PHENCYCLIDINE SCREEN NEGATIVE
[2017-09-14] MEDS ORDERED: IBUPROFEN 800 MG TABLET PO ONE (23:23)
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
[2017-09-15 01:02] VITALS: BP 118/70
--- NOTE | 2017-09-15 10:41 | EKG REPORT ---
SEVERITY:- NORMAL ECG - SINUS RHYTHM : Confirmed by: Janette Verduzco 15-Sep-2017 10:40:45
== END 2017-09-15 01:00 | disposition home or self-care (01) ==
LOC: ER 21:15
DX: F44.5 Conversion disorder with seizures or convulsions (principal); F12.10 Cannabis abuse, uncomplicated; F17.200 Nicotine dependence, unspecified, uncomplicated; R51 Headache; Z88.8 Allergy status to other drugs, medicaments and biological substances; Z88.5 Allergy status to narcotic agent; Z88.0 Allergy status to penicillin; Z88.2 Allergy status to sulfonamides; Z88.6 Allergy status to analgesic agent
CPT/HCPCS: 93005; 99284; 96374; 36415; 80307 ×4; 84703; 85025; 80053; 81001; 93010; A9270; J2060

== ENCOUNTER 2017-10-22 18:28 | Emergency (ER) | payer MEDICARE, MEDICAID ==
--- NOTE | 2017-10-22 19:01 | ER Document Report ---
ED Medical Screen (RME) - General Chief Complaint: Abdominal Pain Stated Complaint: ABDOMINAL PAIN Time Seen by Provider: 10/22/17 18:58 Notes: Patient is a 27-year-old female who presents with lower abdominal pain for 2 days. She drank a cup of coffee, coughed and she said a large amount of water came out of her vagina. PE: NAD. Mild suprapubic tenderness. Pelvic exam deferred at this time in [facility]. I have greeted and performed a rapid initial assessment of this patient. A comprehensive ED assessment and evaluation of the patient, analysis of test results and completion of the medical decision making process will be conducted by additional ED providers. TRAVEL OUTSIDE OF THE [place] IN LAST 30 DAYS: No - Related Data Allergies/Adverse Reactions: diclofenac [Diclofenac] Allergy (Unknown, Verified 10/22/17 18:47) methylphenidate HCl [From Ritalin] Allergy (Unknown, Verified 10/22/17 18:47) morphine [Morphine] Allergy (Unknown, Verified 10/22/17 18:47) Penicillins Allergy (Unknown, Verified 10/22/17 18:47) risperidone [From Risperdal M-TAB] Allergy (Unknown, Verified 10/22/17 18:47) Sulfa (Sulfonamide Antibiotics) Allergy (Unknown, Verified 10/22/17 18:47) acetaminophen Allergy (Verified 10/22/17 18:47) Past Medical History - Social History Chew tobacco use (# tins/day): No Frequency of alcohol use: None Drug Abuse: Marijuana Neurological Medical History: Reports: Hx Migraine, Hx Seizures Renal/ Medical History: Denies: Hx Peritoneal Dialysis Skin Medical History: Denies Hx MRSA Psychiatric Medical History: Reports: Hx Anxiety, Hx Attention Deficit Hyperactivity Disorder, Hx Bipolar Disorder, Hx Depression, Hx Obsessive Compulsive Disorder, Hx Post Traumatic Stress Disorder, Hx Schizophrenia Traumatic Medical History: Reports: Hx Traumatic Brain Injury Infectious Medical History: Denies: Hx MRSA Past Surgical History: Reports: Hx Gynecologic Surgery, Hx Oral Surgery - Immunizations Immunizations up to date: Yes Hx Diphtheria, Pertussis, Tetanus Vaccination: Yes Physical Exam - Vital signs Vitals: Temp Pulse Resp BP Pulse Ox 99.1 F 69 14 120/82 99 10/22/17 18:39 10/22/17 18:39 10/22/17 18:39 10/22/17 18:39 10/22/17 18:39 Course - Vital Signs Vital signs: Temp Pulse Resp BP Pulse Ox 99.1 F 69 14 120/82 99 10/22/17 18:39 10/22/17 18:39 10/22/17 18:39 10/22/17 18:39 10/22/17 18:39
[2017-10-22 19:12] LABS: ABSOLUTE BASOPHILS # (AUTO) 0.1 10^3/uL (0.0-0.2); ABSOLUTE EOSINOPHILS # (AUTO) 0.2 10^3/uL (0.0-0.6); ABSOLUTE MONOCYTES (AUTO) 0.5 10^3/uL (0.1-1.4); ABSOLUTE NEUT (AUTO) 3.3 10^3/uL (1.7-8.2); EOSINOPHILS % (AUTO) 3.2 % (0-6); HEMATOCRIT 42.7 % (36.0-47.0); HEMOGLOBIN 14.8 g/dL (12.0-15.5); LYMPHOCYTES % (AUTO) 33.1 % (13-45); MEAN CORPUSCULAR HEMOGLOBIN 31.6 pg (27.0-33.4); MEAN CORPUSCULAR HGB CONC 34.8 g/dL (32.0-36.0); MEAN CORPUSCULAR VOLUME 91 fl (80-97); MONOCYTES % (AUTO) 8.9 % (3-13); PLATELET COUNT 225 10^3/uL (150-450); RED BLOOD COUNT 4.69 10^6/uL (3.72-5.28); RED CELL DISTRIBUTION WIDTH 12.8 % (11.5-14.0); SEGMENTED NEUTROPHILS % (AUTO) 53.8 % (42-78); TOTAL CELLS COUNTED % (AUTO) 100 %; WHITE BLOOD COUNT 6.2 10^3/uL (4.0-10.5)
[2017-10-22 19:23] LABS: ALANINE AMINOTRANSFERASE 22 U/L (9-52); ALKALINE PHOSPHATASE 58 U/L (38-126); ANION GAP 14 (5-19); ASPARTATE AMINO TRANSFERASE 22 U/L (14-36); BILIRUBIN,DIRECT 0.4 mg/dL (0.0-0.4); BILIRUBIN,TOTAL 1.3 mg/dL (0.2-1.3); BLOOD UREA NITROGEN 12 mg/dL (7-20); CARBON DIOXIDE 19 mmol/L (22-30); CHLORIDE 109 mmol/L (98-107); GLUCOSE 87 mg/dL (75-110); POTASSIUM 4.3 mmol/L (3.6-5.0); SODIUM 141.7 mmol/L (137-145); TOTAL PROTEIN 8.2 g/dL (6.3-8.2)
[2017-10-22] MEDS ORDERED: RINGERS SOLUTION,LACTATED 1,000 ML IV ONE ×2 (20:57→23:26)
[2017-10-22] MEDS ORDERED: METOCLOPRAMIDE HCL INJ/PF 10 MG/2 ML SDV IV ONE (20:57)
[2017-10-22] MEDS ORDERED: DIPHENHYDRAMINE HCL 50 MG/ML VIAL IV ONE (20:58)
--- NOTE | 2017-10-22 21:00 | ER Document Report ---
ED General - General Chief Complaint: Abdominal Pain Stated Complaint: ABDOMINAL PAIN Time Seen by Provider: 10/22/17 18:58 Mode of Arrival: Ambulatory Information source: Patient Notes: This is a 27-year-old female with a history of depression who presents to the emergency room with nausea, vomiting and lower abdominal pain. It is some clear vaginal discharge. She states that the nausea and vomiting started 3 days ago and that the abdominal discomfort started after multiple episodes of vomiting. She denies any vaginal bleeding. TRAVEL OUTSIDE OF THE [place] IN LAST 30 DAYS: No - HPI Onset: Yesterday Onset/Duration: Gradual Quality of pain: Dull Severity: Mild Pain Level: 1 Associated symptoms: Diarrhea, Nausea, Vomiting. denies: Fever Exacerbated by: Denies Relieved by: Denies Similar symptoms previously: No Recently seen / treated by doctor: No - Related Data Allergies/Adverse Reactions: diclofenac [Diclofenac] Allergy (Unknown, Verified 10/22/17 18:47) methylphenidate HCl [From Ritalin] Allergy (Unknown, Verified 10/22/17 18:47) morphine [Morphine] Allergy (Unknown, Verified 10/22/17 18:47) Penicillins Allergy (Unknown, Verified 10/22/17 18:47) risperidone [From Risperdal M-TAB] Allergy (Unknown, Verified 10/22/17 18:47) Sulfa (Sulfonamide Antibiotics) Allergy (Unknown, Verified 10/22/17 18:47) acetaminophen Allergy (Verified 10/22/17 18:47) Past Medical History - General Information source: Patient - Social History Smoking Status: Current Every Day Smoker Cigarette use (# per day): Yes - 1 pack per day Chew tobacco use (# tins/day): No Frequency of alcohol use: None Drug Abuse: Marijuana Family History: Reviewed & Not Pertinent Patient has suicidal ideation: No Patient has homicidal ideation: No Neurological Medical History: Reports: Hx Migraine, Hx Seizures Renal/ Medical History: Denies: Hx Peritoneal Dialysis Skin Medical History: Denies Hx MRSA Psychiatric Medical History: Reports: Hx Anxiety, Hx Attention Deficit Hyperactivity Disorder, Hx Bipolar Disorder, Hx Depression, Hx Obsessive Compulsive Disorder, Hx Post Traumatic Stress Disorder, Hx Schizophrenia Traumatic Medical History: Reports: Hx Traumatic Brain Injury Infectious Medical History: Denies: Hx MRSA Past Surgical History: Reports: Hx Gynecologic Surgery, Hx Oral Surgery - Immunizations Immunizations up to date: Yes Hx Diphtheria, Pertussis, Tetanus Vaccination: Yes Review of Systems - Review of Systems Constitutional: denies: Chills, Fever EENT: No symptoms reported Cardiovascular: No symptoms reported Respiratory: No symptoms reported Gastrointestinal: See HPI Genitourinary: No symptoms reported Female Genitourinary: No symptoms reported Musculoskeletal: No symptoms reported Skin: No symptoms reported Hematologic/Lymphatic: No symptoms reported Neurological/Psychological: No symptoms reported Physical Exam - Vital signs Vitals: Temp Pulse Resp BP Pulse Ox 99.1 F 69 14 120/82 99 10/22/17 18:39 10/22/17 18:39 10/22/17 18:39 10/22/17 18:39 10/22/17 18:39 Notes: Physical exam: GENERAL: 27-year-old female, alert and oriented 3, no acute distress HEAD: Atraumatic, normocephalic. EYES: Pupils equal round and reactive to light, extraocular movements intact, sclera anicteric, conjunctiva are normal. ENT: TMs normal, nares patent, oropharynx clear without exudates. Moist mucous membranes. NECK: Normal range of motion, supple without obvious mass or JVD. LUNGS: Breath sounds clear to auscultation bilaterally and equal. No wheezes rales or rhonchi. HEART: Regular rate and rhythm without murmurs, rubs or gallops. ABDOMEN: Soft, normoactive bowel sounds. No tenderness to palpation. No guarding, no rebound. No masses appreciated. Pelvic: Performed in the presence of a female simulation educator: External genitalia normal, scant discharge in vault, no cervical motion tenderness, right adnexal tenderness. EXTREMITIES: Normal range of motion, no pitting or edema. No clubbing or cyanosis. NEUROLOGICAL: Cranial nerves II through XII grossly intact. Normal speech, moving all extremities. PSYCH: Normal mood, normal affect. SKIN: Warm, Dry, normal turgor, no rashes or lesions noted. Course - Re-evaluation Re-evalutation: 10/23/17 00:46 Patient does feel better after IV fluids, antiemetics and IV Toradol (small dose ). CT of the abdomen shows no acute intra-abdominal process. The patient is feeling much better and is requesting to eat. I did discuss with her that the ultrasound did show an incidental finding (nodule which is 2 cm solid-appearing on the aft ovary) and I have explained to her that they recommend a follow-up ultrasound in 4-6 weeks. I have referred her to the [facility]. I have given her a copy of the ultrasound report itself. - Vital Signs Vital signs: Temp Pulse Resp BP Pulse Ox 99.1 F 69 14 120/82 99 10/22/17 18:39 10/22/17 18:39 10/22/17 18:39 10/22/17 18:39 10/22/17 18:39 - Laboratory Result Diagrams: 10/22/17 18:05 10/22/17 18:05 Laboratory results interpreted by me: 10/22/17 10/22/17 18:05 21:03 Chloride 109 H Carbon Dioxide 19 L Urine Ketones 20 H - Diagnostic Test Radiology reviewed: Image reviewed, Reports reviewed - CT of the abdomen shows no acute intra-abdominal process. Ultrasound does show a nodule in the right adnexa (recommendation for repeat scan in 4-6 weeks) Discharge - Discharge Clinical Impression: Vomiting with nausea, Left adnexal nodule Condition: Stable Disposition: HOME, SELF-CARE Additional Instructions: As we discussed, your labs look good today. The ultrasound did show a 2 cm solid-appearing [place] in the left ovary. This was not in the location of your pain and most likely is not the cause of your pain. The radiologist did recommend that you do a follow-up transvaginal ultrasound in 4-6 weeks to assess whether it is persisting. Bring a copy of the ultrasound report with you (provided at discharge) when you visit your PLASTER APPLICATOR doctor. I have left the number for the PLASTER APPLICATOR doctors at the [facility]. The CT of the abdomen as well as your labs look quite good. Recommendations: drink plenty of fluids, take nausea medicine as needed, Rest and advance diet as tolerated. Take Zofran for nausea. Follow-up with the music executive for repeat transvaginal ultrasound in 4-6 weeks. Bring a copy of the ultrasound report with you when you are evaluated. Prescriptions: Ondansetron HCl [Zofran 4 mg Tablet] 1 - 2 tab PO Q4H PRN #10 tablet PRN Reason: Referrals: CAREN AMARAL MD [ACTIVE STAFF] - Follow up as needed (This is the number for the [facility])
[2017-10-22 22:01] LABS: BACTERIA (WET MOUNT) 3+ BACTERIA SEEN; EPITHELIALS (WET MOUNT) 4+ EPITHELIALS SEEN; T.VAGINALIS (WET MOUNT) NO TRICHOMONAS SEEN; WBCS (WET MOUNT) FEW WBCS SEEN; YEAST (WET MOUNT) NO YEAST SEEN
[2017-10-22 22:02] LABS: APPEARANCE,URINE CLEAR; BILIRUBIN,URINE NEGATIVE (NEGATIVE); COLOR,URINE YELLOW; GLUCOSE, URINE NEGATIVE (NEGATIVE); KETONES,URINE 20 mg/dL (NEGATIVE); LEUKOCYTE ESTERASE,URINE NEGATIVE (NEGATIVE); NITRITE,URINE NEGATIVE (NEGATIVE); PROTEIN,URINE NEGATIVE (NEGATIVE); URINE SPECIFIC GRAVITY 1.025; UROBILINOGEN,URINE NEGATIVE mg/dL (<2.0)
[2017-10-22 23:23] LABS: CHLAM PCR NOT DETECTED (NOT DETECT); GON PCR NOT DETECTED (NOT DETECT)
--- NOTE | 2017-10-22 23:50 | RADIOLOGY REPORT (SQ) ---
EXAM DESCRIPTION: U/S NON OB PEL TV W/DOPPLER COMPLETED DATE/TIME: 10/22/2017 11:33 pm REASON FOR STUDY: RIGHT ADNEXAL PAIN COMPARISON: None. TECHNIQUE: Dynamic and static grayscale images acquired of the pelvis via transvaginal approach and recorded on PACS. Additional selected color Doppler and spectral images recorded. LIMITATIONS: None. FINDINGS: UTERUS: Contour normal. No mass. ENDOMETRIAL STRIPE: Heterogeneous generalized thickening, 15 mm with trace free fluid. CERVIX: No nabothian cysts. RIGHT ADNEXUM: No abnormal masses. RIGHT OVARY AND DOPPLER: Normal size. No worrisome masses.Normal arterial vascular flow without evide nce for torsion. LEFT ADNEXUM: 2 cm solid-appearing nodule on the left ovary. LEFT OVARY AND DOPPLER: Normal size. 2 cm solid-appearing nodule on the left ovary. . Normal arterial vascular flow without evidence for torsion. FREE FLUID: Trace endometrial and cul-de-sac free fluid. OTHER: No other significant finding. MEASUREMENTS: UTERUS: 8.1 x 6.2 x 5.0 cm ENDOMETRIAL STRIPE: 15 mm RIGHT OVARY: 3.3 x 2.0 x 1.6 cm LEFT OVARY: 3.6 x 2.7 x 2.4 cm IMPRESSION: 2 cm solid-appearing nodule on the left ovary. Recommend follow-up scan in 4 to 6 weeks to assess for persistence. TECHNICAL DOCUMENTATION: JOB ID: [id number] 2010 [employer]- All Rights Reserved Reading location - IP/workstation name: [employer]
--- NOTE | 2017-10-23 00:35 | RADIOLOGY REPORT (SQ) ---
EXAM DESCRIPTION: CT ABDOMEN AND PELVIS WITH CONTRAST CLINICAL HISTORY: abd pain. Right adnexal pain. COMPARISON: None Available. TECHNIQUE: CT of the abdomen and pelvis performed following IV administration of 52 mL of Isovue-370. DLP: 466 mGycm FINDINGS: Lung Bases: The visualized lung bases are clear. Bones: No destructive bone lesions identified. Abdomen: Liver: The liver has normal size and density. No intrahepatic mass or biliary dilatation. Gallbladder: No calcified gallstones. Spleen, Pancreas, and Adrenal Glands: The spleen, pancreas, and adrenal glands are unremarkable. Kidneys: The kidneys have normal size and contour without evidence of solid mass or hydronephrosis. Vasculature: The aorta and IVC have normal caliber and position. The portal vein is patent. The proximal visceral and renal arteries are patent. Stomach: The stomach and duodenum have normal course. Other: No free intraperitoneal air. No free fluid or lymphadenopathy. Pelvis: Bladder: Urinary bladder is unremarkable. Bowel: No dilated loops of large or small bowel. Appendix: The appendix is not definitely identified. No definite secondary signs of acute appendicitis. Pelvis: Uterus is not enlarged. No definite abnormalities of the ovaries identified by CT criteria. IMPRESSION: 1. No acute inflammatory or obstructive process identified. This exam was performed according to our departmental dose-optimization program, which includes automated exposure control, adjustment of the mA and/or kV according to patient size and/or use of iterative reconstruction technique.
[2017-10-23] MEDS ORDERED: DIPHENHYDRAMINE HCL 50 MG/ML VIAL IV ONE (00:48)
[2017-10-23] MEDS ORDERED: ONDANSETRON ODT 4 MG TAB (6 TAB/ER DISP) PO PRN (00:48)
[2017-10-23 01:12] VITALS: BP 133/65
== END 2017-10-23 01:11 | disposition home or self-care (01) ==
LOC: ER 18:28
DX: R11.2 Nausea with vomiting, unspecified (principal); N83.202 Unspecified ovarian cyst, left side; R10.30 Lower abdominal pain, unspecified; N89.8 Other specified noninflammatory disorders of vagina; F17.210 Nicotine dependence, cigarettes, uncomplicated
CPT/HCPCS: 96376; 99284; 96374; 96375; 36415; 87210; 84702; 85025; 81025; 80053; 81001; 87491; 87591; 76830; 93976; 74177; J1200 ×2; J2765; J7120; A9270; 96361

== ENCOUNTER 2017-10-31 16:54 | Emergency (ER) | payer MEDICARE, MEDICAID ==
[2017-10-31 17:01] VITALS: BP 121/78
[2017-10-31] MEDS ORDERED: NORMAL SALINE 1000 ML 1,000 ML IV ONE (18:17)
--- NOTE | 2017-10-31 18:19 | ER Document Report ---
HPI - HPI Patient complains to provider of: Pelvic pain Onset: Other - 1 month Onset/Duration: Waxing and waning Quality of pain: Sharp Pain Level: 5 Context: Patient complains of pelvic pain with vaginal bleeding off and on for the past month. Patient states she has had increased pain over the past 4 days. Patient reports that she was here 9 days ago and diagnosed with a nodule on her left ovary. She went to her primary doctor's office today so that she can get a referral to see the professional programmer analyst and her primary doctor advised her to come back to the emergency department for further evaluation. Patient denies any fever. Associated Symptoms: Nausea, Vomiting, Other - Pelvic pain. denies: Fever Exacerbated by: Movement Relieved by: Denies Similar symptoms previously: Yes Recently seen / treated by doctor: Yes - ROS ROS below otherwise negative: Yes Systems Reviewed and Negative: Yes All other systems reviewed and negative - CONSTITUTIONAL Constitutional: DENIES: Fever - GASTROINTESTINAL Gastrointestinal: REPORTS: Abdominal Pain, Nausea, Patient vomiting - URINARY Urinary: DENIES: Dysuria - REPRODUCTIVE Reproductive: REPORTS: Abnormal bleeding / discharge. DENIES: : - MUSCULOSKELETAL Musculoskeletal: DENIES: Back Pain - DERM Skin Color: Normal Skin Problems: None Past Medical History - General Information source: Patient - Social History Smoking Status: Current Every Day Smoker Chew tobacco use (# tins/day): No Smoking Education Provided: Yes Frequency of alcohol use: None Drug Abuse: Marijuana Occupation: None Family History: Reviewed & Not Pertinent Patient has suicidal ideation: No Patient has homicidal ideation: No Neurological Medical History: Reports: Hx Migraine, Hx Seizures Renal/ Medical History: Denies: Hx Peritoneal Dialysis Skin Medical History: Denies Hx MRSA Psychiatric Medical History: Reports: Hx Anxiety, Hx Attention Deficit Hyperactivity Disorder, Hx Bipolar Disorder, Hx Depression, Hx Obsessive Compulsive Disorder, Hx Post Traumatic Stress Disorder, Hx Schizophrenia Traumatic Medical History: Reports: Hx Traumatic Brain Injury Infectious Medical History: Denies: Hx MRSA Past Surgical History: Reports: Hx Gynecologic Surgery, Hx Oral Surgery - Immunizations Immunizations up to date: Yes Hx Diphtheria, Pertussis, Tetanus Vaccination: Yes Vertical Provider Document - CONSTITUTIONAL Agree With Documented VS: Yes Exam Limitations: No Limitations General Appearance: WD/WN, No Apparent Distress - INFECTION CONTROL TRAVEL OUTSIDE OF THE [place] IN LAST 30 DAYS: No - HEENT HEENT: Atraumatic, Normocephalic - NECK Neck: Normal Inspection, Supple - RESPIRATORY Respiratory: Breath Sounds Normal, No Respiratory Distress - CARDIOVASCULAR Cardiovascular: Regular Rate, Regular Rhythm - GI/ABDOMEN Gastrointestinal: Abdomen Soft, Abdomen Tender - LLQ, Abdominal Guarding, Normal Bowel Sounds - REPRODUCTIVE Female Genitalia: Adnexal Pain-Left. negative: CMT Notes: minimal vaginal bleeding, patient with exaggerated pain response with examination. Adrienne RN as standby - BACK Back: CVA Tenderness-Left - MUSCULOSKELETAL/EXTREMETIES Musculoskeletal/Extremeties: YASMIN, FROM - NEURO Level of Consciousness: Awake, Alert, Appropriate Motor/Sensory: No Motor Deficit - DERM Integumentary: Warm, Dry, No Rash Course - Re-evaluation Re-evalutation: 10/31/17 21:47 Patient visibly more comfortable. Reviewed patient's diagnostic test results with Dr. Riggs. Recommends outpatient follow-up with professional programmer analyst as previously advised. No additional testing at this time. Patient advised of results of her diagnostic evaluation. Patient encouraged to see her doctor so that she can get referral to professional programmer analyst for further monitoring of nodule noted to the left ovary that was found at her previous ER visit. Patient without any fever or leukocytosis. No concern for ovarian torsion at this time. Patient presents with abdominal pain without signs of peritonitis or other life-threatening or serious etiology. Patient appears stable for discharge and has been instructed to return immediately if the symptoms worsen in any way, or in 8-12 hours if not improved for reevaluation. The patient has been instructed to return if the symptoms worsen or change in any way. - Vital Signs Vital signs: Temp Pulse Resp BP Pulse Ox 98.4 F 65 17 121/78 100 10/31/17 16:59 10/31/17 16:59 10/31/17 16:59 10/31/17 16:59 10/31/17 16:59 - Laboratory Result Diagrams: 10/31/17 18:44 10/31/17 18:44 Laboratory results interpreted by me: 10/31/17 21:48 Labs- Entire Visit 10/31/17 10/31/17 10/31/17 18:44 18:44 18:44 WBC 7.1 RBC 4.43 Hgb 13.9 Hct 40.4 MCV 91 MCH 31.4 MCHC 34.4 RDW 12.5 Plt Count 195 Seg Neutrophils % 62.0 Lymphocytes % 28.6 Monocytes % 6.0 Eosinophils % 2.9 Basophils % 0.5 Absolute Neutrophils 4.4 Absolute Lymphocytes 2.0 Absolute Monocytes 0.4 Absolute Eosinophils 0.2 Absolute Basophils 0.0 Sodium 144.4 Potassium 4.0 Chloride 107 Carbon Dioxide 28 Anion Gap 9 BUN 5 L Creatinine 0.58 Est GFR ( Amer) > 60 Est GFR (Non-Af Amer) > 60 Glucose 80 Calcium 9.7 Total Bilirubin 0.5 Direct Bilirubin 0.2 Neonat Total Bilirubin Not Reportable Neonat Direct Bilirubin Not Reportable Neonat Indirect Bili Not Reportable AST 17 ALT 18 Alkaline Phosphatase 56 Total Protein 7.3 Albumin 4.5 Serum HCG, Qual NEGATIVE Urine Color Urine Appearance Urine pH Ur Specific [place] Urine Protein Urine Glucose (UA) Urine Ketones Urine Blood Urine Nitrite Urine Bilirubin Urine Urobilinogen Ur Leukocyte Esterase Urine WBC (Auto) Urine RBC (Auto) Squamous Epi Cells Auto Urine Mucus (Auto) Urine Ascorbic Acid Trichomonas (Wet Prep) Vaginal WBC Vaginal RBC Vaginal Yeast Chlamydia DNA (PCR) N.gonorrhoeae DNA (PCR) 10/31/17 10/31/17 10/31/17 19:13 19:19 19:19 WBC RBC Hgb Hct MCV MCH MCHC RDW Plt Count Seg Neutrophils % Lymphocytes % Monocytes % Eosinophils % Basophils % Absolute Neutrophils Absolute Lymphocytes Absolute Monocytes Absolute Eosinophils Absolute Basophils Sodium Potassium Chloride Carbon Dioxide Anion Gap BUN Creatinine Est GFR ( Amer) Est GFR (Non-Af Amer) Glucose Calcium Total Bilirubin Direct Bilirubin Neonat Total Bilirubin Neonat Direct Bilirubin Neonat Indirect Bili AST ALT Alkaline Phosphatase Total Protein Albumin Serum HCG, Qual Urine Color YELLOW Urine Appearance CLEAR Urine pH 6.0 Ur Specific [place] 1.010 Urine Protein NEGATIVE Urine Glucose (UA) NEGATIVE Urine Ketones NEGATIVE Urine Blood MODERATE H Urine Nitrite NEGATIVE Urine Bilirubin NEGATIVE Urine Urobilinogen NEGATIVE Ur Leukocyte Esterase TRACE H Urine WBC (Auto) 6 Urine RBC (Auto) 3 Squamous Epi Cells Auto 1 Urine Mucus (Auto) RARE Urine Ascorbic Acid NEGATIVE Trichomonas (Wet Prep) NO TRICHOMONAS SEEN Vaginal WBC NO WBCS SEEN Vaginal RBC 2+ RBCS SEEN Vaginal Yeast NO YEAST SEEN Chlamydia DNA (PCR) NOT DETECTED N.gonorrhoeae DNA (PCR) NOT DETECTED Reviewed labs from patient's previous ER visit as well - Diagnostic Test Radiology reviewed: Reports reviewed - From previous ER visit as well Discharge - Discharge Clinical Impression: Pelvic pain, Vagina bleeding, hx ovarian nodule Condition: Stable Disposition: HOME, SELF-CARE Instructions: Growth or Mass, Pending Workup ([facility]), Pelvic Pain ([facility]), Vaginal Bleeding ([facility]) Additional Instructions: Return immediately for any new or worsening symptoms Followup with your primary care provider, call tomorrow to make a followup appointment Follow-up with a professional programmer analyst for further evaluation of nodule noted to left ovary from previous ER visit Prescriptions: Ibuprofen [Motrin 600 Mg Tablet] 600 mg PO Q6H PRN #15 tablet PRN Reason: for pain Referrals: [facility] [Provider Group] - Follow up in 3-5 days
[2017-10-31 19:07] LABS: ABSOLUTE EOSINOPHILS # (AUTO) 0.2 10^3/uL (0.0-0.6); ABSOLUTE MONOCYTES (AUTO) 0.4 10^3/uL (0.1-1.4); ABSOLUTE NEUT (AUTO) 4.4 10^3/uL (1.7-8.2); BASOPHILS % (AUTO) 0.5 % (0-2); EOSINOPHILS % (AUTO) 2.9 % (0-6); HEMATOCRIT 40.4 % (36.0-47.0); HEMOGLOBIN 13.9 g/dL (12.0-15.5); LYMPHOCYTES % (AUTO) 28.6 % (13-45); MEAN CORPUSCULAR HEMOGLOBIN 31.4 pg (27.0-33.4); MEAN CORPUSCULAR HGB CONC 34.4 g/dL (32.0-36.0); MEAN CORPUSCULAR VOLUME 91 fl (80-97); PLATELET COUNT 195 10^3/uL (150-450); RED BLOOD COUNT 4.43 10^6/uL (3.72-5.28); RED CELL DISTRIBUTION WIDTH 12.5 % (11.5-14.0); TOTAL CELLS COUNTED % (AUTO) 100 %; WHITE BLOOD COUNT 7.1 10^3/uL (4.0-10.5)
[2017-10-31 19:15] LABS: ALANINE AMINOTRANSFERASE 18 U/L (9-52); ALBUMIN 4.5 g/dL (3.5-5.0); ALKALINE PHOSPHATASE 56 U/L (38-126); ANION GAP 9 (5-19); ASPARTATE AMINO TRANSFERASE 17 U/L (14-36); BILIRUBIN,DIRECT 0.2 mg/dL (0.0-0.4); BILIRUBIN,TOTAL 0.5 mg/dL (0.2-1.3); BLOOD UREA NITROGEN 5 mg/dL (7-20); CALCIUM 9.7 mg/dL (8.4-10.2); CARBON DIOXIDE 28 mmol/L (22-30); CHLORIDE 107 mmol/L (98-107); GLUCOSE 80 mg/dL (75-110); SODIUM 144.4 mmol/L (137-145); TOTAL PROTEIN 7.3 g/dL (6.3-8.2)
[2017-10-31] MEDS ORDERED: OXYCODONE HCL IR 5 MG TABLET PO ONE (19:20)
[2017-10-31 19:29] LABS: RBCS (WET MOUNT) 2+ RBCS SEEN; T.VAGINALIS (WET MOUNT) NO TRICHOMONAS SEEN; WBCS (WET MOUNT) NO WBCS SEEN; YEAST (WET MOUNT) NO YEAST SEEN
[2017-10-31 19:40] LABS: APPEARANCE,URINE CLEAR; BILIRUBIN,URINE NEGATIVE (NEGATIVE); COLOR,URINE YELLOW; GLUCOSE, URINE NEGATIVE (NEGATIVE); KETONES,URINE NEGATIVE (NEGATIVE); LEUKOCYTE ESTERASE,URINE TRACE (NEGATIVE); NITRITE,URINE NEGATIVE (NEGATIVE); PROTEIN,URINE NEGATIVE (NEGATIVE); UROBILINOGEN,URINE NEGATIVE mg/dL (<2.0)
[2017-10-31 20:56] LABS: CHLAM PCR NOT DETECTED (NOT DETECT); GON PCR NOT DETECTED (NOT DETECT)
--- NOTE | 2017-10-31 21:10 | RADIOLOGY REPORT (SQ) ---
EXAM DESCRIPTION: U/S NON OB PEL TV W/DOPPLER COMPLETED DATE/TIME: 10/31/2017 8:34 pm REASON FOR STUDY: LLQ pain COMPARISON: None. TECHNIQUE: Dynamic and static grayscale images acquired of the pelvis via transvaginal approach and recorded on PACS. Additional selected color Doppler and spectral images recorded. LIMITATIONS: None. FINDINGS: UTERUS: Contour normal. No mass. ENDOMETRIAL STRIPE: No focal or generalized thickening. No masses. CERVIX: No nabothian cysts. RIGHT ADNEXUM: No abnormal masses. RIGHT OVARY AND DOPPLER: Normal size. No worrisome masses. Normal arterial vascular flow without bereket dence for torsion. LEFT ADNEXUM: No abnormal masses. LEFT OVARY AND DOPPLER: Normal size. No worrisome masses. Normal arterial vascular flow without evide nce for torsion. FREE FLUID: Trace cul-de-sac free fluid. OTHER: No other significant finding. MEASUREMENTS: UTERUS: 9.2 x 5.4 x 4.5 cm ENDOMETRIAL STRIPE: 5 mm RIGHT OVARY: 2.8 x 1.8 x 2.0 cm LEFT OVARY: 3.3 x 2.4 x 2.3 cm IMPRESSION: Age-appropriate exam. TECHNICAL DOCUMENTATION: JOB ID: [id number] [place]-72 2010 [employer]- All Rights Reserved Reading location - IP/workstation name: [email or web address]
== END 2017-10-31 22:21 | disposition home or self-care (01) ==
LOC: ER 16:54
DX: R10.2 Pelvic and perineal pain (principal); N93.9 Abnormal uterine and vaginal bleeding, unspecified; R11.2 Nausea with vomiting, unspecified; R10.9 Unspecified abdominal pain; N89.8 Other specified noninflammatory disorders of vagina; Z87.42 Personal history of other diseases of the female genital tract; F17.200 Nicotine dependence, unspecified, uncomplicated
CPT/HCPCS: 99284; 96360; 51701; 36415; 87086; 87210; 84703; 85025; 87088; 80053; 81001; 87186; 87491; 87591; 76830; 93976; J7030; A9270

== ENCOUNTER 2018-01-25 11:33 | Emergency (ER) | payer MEDICARE, MEDICAID ==
[2018-01-25 13:20] LABS: ABSOLUTE EOSINOPHILS # (AUTO) 0.1 10^3/uL (0.0-0.6); ABSOLUTE LYMPHOCYTES (AUTO) 1.5 10^3/uL (0.5-4.7); ABSOLUTE MONOCYTES (AUTO) 0.5 10^3/uL (0.1-1.4); ABSOLUTE NEUT (AUTO) 6.1 10^3/uL (1.7-8.2); BASOPHILS % (AUTO) 0.4 % (0-2); EOSINOPHILS % (AUTO) 1.4 % (0-6); HEMATOCRIT 40.9 % (36.0-47.0); HEMOGLOBIN 14.1 g/dL (12.0-15.5); LYMPHOCYTES % (AUTO) 18.1 % (13-45); MEAN CORPUSCULAR HEMOGLOBIN 31.8 pg (27.0-33.4); MEAN CORPUSCULAR HGB CONC 34.5 g/dL (32.0-36.0); MEAN CORPUSCULAR VOLUME 92 fl (80-97); MONOCYTES % (AUTO) 6.2 % (3-13); PLATELET COUNT 242 10^3/uL (150-450); RED BLOOD COUNT 4.44 10^6/uL (3.72-5.28); RED CELL DISTRIBUTION WIDTH 12.6 % (11.5-14.0); SEGMENTED NEUTROPHILS % (AUTO) 73.9 % (42-78); TOTAL CELLS COUNTED % (AUTO) 100 %; WHITE BLOOD COUNT 8.2 10^3/uL (4.0-10.5)
[2018-01-25 13:45] LABS: ALANINE AMINOTRANSFERASE 21 U/L (9-52); ALBUMIN 4.9 g/dL (3.5-5.0); ALKALINE PHOSPHATASE 63 U/L (38-126); ANION GAP 15 (5-19); ASPARTATE AMINO TRANSFERASE 21 U/L (14-36); BILIRUBIN,DIRECT 0.3 mg/dL (0.0-0.4); BILIRUBIN,TOTAL 1.1 mg/dL (0.2-1.3); BLOOD UREA NITROGEN 8 mg/dL (7-20); CALCIUM 9.5 mg/dL (8.4-10.2); CARBON DIOXIDE 23 mmol/L (22-30); CHLORIDE 108 mmol/L (98-107); GLUCOSE 84 mg/dL (75-110); POTASSIUM 3.9 mmol/L (3.6-5.0); SODIUM 145.6 mmol/L (137-145)
[2018-01-25 13:46] LABS: ACETAMINOPHEN < 10 ug/mL (10-30); ALCOHOL < 10 mg/dL (NONE DETECTED); SALICYLATE < 1.0 mg/dL (2.0-20.0)
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
[2018-01-25] MEDS ORDERED: ZIPRASIDONE HCL 20 MG CAPSULE PO ONE (15:02)
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
[2018-01-25 16:07] VITALS: BP 118/70
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
--- NOTE | 2018-01-25 21:46 | EKG REPORT ---
SEVERITY:- BORDERLINE ECG - SINUS RHYTHM : Confirmed by: Janette Verduzco 25-Jan-2018 21:46:11
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
== END 2018-01-25 15:55 | disposition home or self-care (01) ==
LOC: ER 11:33
DX: F31.9 Bipolar disorder, unspecified (principal); F43.21 Adjustment disorder with depressed mood; S20.319A Abrasion of unspecified front wall of thorax, initial encounter; J34.89 Other specified disorders of nose and nasal sinuses; F17.200 Nicotine dependence, unspecified, uncomplicated; Z87.820 Personal history of traumatic brain injury; Z88.6 Allergy status to analgesic agent; Z88.0 Allergy status to penicillin; Y04.2XXA Assault by strike against or bumped into by another person, initial encounter
CPT/HCPCS: 93005; 99285; 36415; 80307 ×3; 84703; 85025; 80053; 70160; 71101; 93010; A9270

== ENCOUNTER 2018-05-15 12:38 | Emergency (ER) | payer MEDICARE, MEDICAID ==
--- NOTE | 2018-05-15 12:50 | EKG REPORT ---
SEVERITY:- NORMAL ECG - SINUS RHYTHM : Confirmed by: Abelardo Mendieta MD 15-May-2018 12:50:05
--- NOTE | 2018-05-15 14:01 | ER Document Report ---
ED Medical Screen (RME) - General Chief Complaint: Chest Pain Stated Complaint: POSSIBLE ANXIETY Time Seen by Provider: 05/15/18 14:00 Notes: 28 years old female was referred here by the primary care physician because of chest pain, need to be evaluated according to the patient. The pain is going on for a month. Not associated with any left arm numbness tingling sensation nausea vomiting. But general tiredness. No fever chills or cough. TRAVEL OUTSIDE OF THE [place] IN LAST 30 DAYS: No - Related Data Allergies/Adverse Reactions: diclofenac [Diclofenac] Allergy (Unknown, Verified 05/15/18 12:40) methylphenidate HCl [From Ritalin] Allergy (Unknown, Verified 05/15/18 12:40) morphine [Morphine] Allergy (Unknown, Verified 05/15/18 12:40) Penicillins Allergy (Unknown, Verified 05/15/18 12:40) risperidone [From Risperdal M-TAB] Allergy (Unknown, Verified 05/15/18 12:40) Sulfa (Sulfonamide Antibiotics) Allergy (Unknown, Verified 05/15/18 12:40) acetaminophen Allergy (Verified 05/15/18 12:40) Past Medical History - Social History Chew tobacco use (# tins/day): No Drug Abuse: Marijuana Neurological Medical History: Reports: Hx Migraine, Hx Seizures Renal/ Medical History: Denies: Hx Peritoneal Dialysis Skin Medical History: Denies Hx MRSA Psychiatric Medical History: Reports: Hx Anxiety, Hx Attention Deficit Hyperactivity Disorder, Hx Bipolar Disorder, Hx Depression, Hx Obsessive Compulsive Disorder, Hx Post Traumatic Stress Disorder, Hx Schizophrenia Traumatic Medical History: Reports: Hx Traumatic Brain Injury Infectious Medical History: Denies: Hx MRSA Past Surgical History: Reports: Hx Gynecologic Surgery, Hx Oral Surgery - Immunizations Immunizations up to date: Yes Hx Diphtheria, Pertussis, Tetanus Vaccination: Yes Physical Exam - Vital signs Vitals: Temp Pulse Resp BP Pulse Ox 98.3 F 73 16 114/77 99 05/15/18 12:50 05/15/18 12:50 05/15/18 12:50 05/15/18 12:50 05/15/18 12:50 Course - Vital Signs Vital signs: Temp Pulse Resp BP Pulse Ox 98.3 F 73 16 114/77 99 05/15/18 12:50 05/15/18 12:50 05/15/18 12:50 05/15/18 12:50 05/15/18 12:50
[2018-05-15 14:39] LABS: ABSOLUTE BASOPHILS # (AUTO) 0.1 10^3/uL (0.0-0.2); ABSOLUTE EOSINOPHILS # (AUTO) 0.2 10^3/uL (0.0-0.6); ABSOLUTE LYMPHOCYTES (AUTO) 2.4 10^3/uL (0.5-4.7); ABSOLUTE MONOCYTES (AUTO) 0.5 10^3/uL (0.1-1.4); ABSOLUTE NEUT (AUTO) 3.3 10^3/uL (1.7-8.2); BASOPHILS % (AUTO) 0.8 % (0-2); EOSINOPHILS % (AUTO) 3.5 % (0-6); HEMATOCRIT 42.8 % (36.0-47.0); HEMOGLOBIN 15.3 g/dL (12.0-15.5); LYMPHOCYTES % (AUTO) 36.7 % (13-45); MEAN CORPUSCULAR HEMOGLOBIN 32.1 pg (27.0-33.4); MEAN CORPUSCULAR HGB CONC 35.7 g/dL (32.0-36.0); MEAN CORPUSCULAR VOLUME 90 fl (80-97); MONOCYTES % (AUTO) 8.3 % (3-13); PLATELET COUNT 224 10^3/uL (150-450); RED BLOOD COUNT 4.75 10^6/uL (3.72-5.28); RED CELL DISTRIBUTION WIDTH 12.4 % (11.5-14.0); SEGMENTED NEUTROPHILS % (AUTO) 50.7 % (42-78); TOTAL CELLS COUNTED % (AUTO) 100 %; WHITE BLOOD COUNT 6.5 10^3/uL (4.0-10.5)
[2018-05-15 14:59] LABS: ALANINE AMINOTRANSFERASE 17 U/L (9-52); ALBUMIN 4.7 g/dL (3.5-5.0); ALKALINE PHOSPHATASE 64 U/L (38-126); ANION GAP 16 (5-19); ASPARTATE AMINO TRANSFERASE 20 U/L (14-36); BILIRUBIN,DIRECT 0.1 mg/dL (0.0-0.4); BLOOD UREA NITROGEN 14 mg/dL (7-20); CALCIUM 9.8 mg/dL (8.4-10.2); CARBON DIOXIDE 22 mmol/L (22-30); CHLORIDE 105 mmol/L (98-107); CREATINE KINASE 42 U/L (30-135); GLUCOSE 79 mg/dL (75-110); POTASSIUM 4.4 mmol/L (3.6-5.0); SODIUM 142.7 mmol/L (137-145); TOTAL PROTEIN 7.7 g/dL (6.3-8.2)
--- NOTE | 2018-05-15 15:09 | RADIOLOGY REPORT (SQ) ---
EXAM DESCRIPTION: CHEST SINGLE VIEW COMPLETED DATE/TIME: 05/15/2018 2:57 pm REASON FOR STUDY: Chest pain COMPARISON: 07/31/2017. EXAM PARAMETERS: NUMBER OF VIEWS: One view. TECHNIQUE: Single frontal radiographic view of the chest acquired. RADIATION DOSE: NA LIMITATIONS: None. FINDINGS: LUNGS AND PLEURA: No opacities, masses or pneumothorax. No pleural effusion. MEDIASTINUM AND HILAR STRUCTURES: No masses. Contour normal. HEART AND VASCULAR STRUCTURES: Heart normal in size. Normal vasculature. BONES: No acute findings. HARDWARE: None in the chest. OTHER: No other significant finding. IMPRESSION: NO ACUTE RADIOGRAPHIC FINDING IN THE CHEST. TECHNICAL DOCUMENTATION: JOB ID: [id number] [employer]- All Rights Reserved Reading location - IP/workstation name: [email or web address]
[2018-05-15 15:10] LABS: CREATINE KINASE MB 0.24 ng/mL (<4.55)
[2018-05-15 15:12] LABS: TROPONIN I < 0.012 ng/mL
--- NOTE | 2018-05-15 16:17 | ER Document Report ---
ED General - General Mode of Arrival: Ambulatory Information source: Patient TRAVEL OUTSIDE OF THE [place]. IN LAST 30 DAYS: No <JAVI PEREZ - Last Filed: 05/16/18 00:25> <FIDEL RIVERA - Last Filed: 05/16/18 00:28> - General Chief Complaint: Chest Pain Stated Complaint: POSSIBLE ANXIETY Time Seen by Provider: 05/15/18 14:00 Notes: Patient is a 28-year-old female presenting to the emergency department complaining of chest pain onset approximately 6 months ago. Patient states that she has been having sharp chest pains, intermittently, for the last 6 months. She reports today she had a syncopal episode due to the pain being so severe. She reports presenting to [facility] yesterday complaining of similar symptoms and had bloodwork performed. Today she reports she was called and instructed to come to the emergency department based off of lab results. She states she is unsure what the lab results showed. She also complains of shortness of breath on exertion, nausea and dizziness with movement. Patient also mentions recently losing weight. (JAVI PEREZ) - Related Data Allergies/Adverse Reactions: diclofenac [Diclofenac] Allergy (Unknown, Verified 05/15/18 12:40) methylphenidate HCl [From Ritalin] Allergy (Unknown, Verified 05/15/18 12:40) morphine [Morphine] Allergy (Unknown, Verified 05/15/18 12:40) Penicillins Allergy (Unknown, Verified 05/15/18 12:40) risperidone [From Risperdal M-TAB] Allergy (Unknown, Verified 05/15/18 12:40) Sulfa (Sulfonamide Antibiotics) Allergy (Unknown, Verified 05/15/18 12:40) acetaminophen Allergy (Verified 05/15/18 12:40) Past Medical History - General Information source: Patient - Social History Smoking Status: Current Every Day Smoker Chew tobacco use (# tins/day): No Drug Abuse: Marijuana Family History: Reviewed & Not Pertinent Patient has suicidal ideation: No Patient has homicidal ideation: No Neurological Medical History: Reports: Hx Migraine, Hx Seizures Psychiatric Medical History: Reports: Hx Anxiety, Hx Attention Deficit Hyperactivity Disorder, Hx Bipolar Disorder, Hx Depression, Hx Obsessive Compulsive Disorder, Hx Post Traumatic Stress Disorder, Hx Schizophrenia Traumatic Medical History: Reports: Hx Traumatic Brain Injury Past Surgical History: Reports: Hx Gynecologic Surgery, Hx Oral Surgery - Immunizations Immunizations up to date: Yes Hx Diphtheria, Pertussis, Tetanus Vaccination: Yes <JAVI PEREZ - Last Filed: 05/16/18 00:25> Review of Systems - Review of Systems Constitutional: No symptoms reported EENT: No symptoms reported Cardiovascular: See HPI, Chest pain Respiratory: See HPI, Short of breath Gastrointestinal: No symptoms reported Genitourinary: No symptoms reported Female Genitourinary: No symptoms reported Musculoskeletal: No symptoms reported Skin: No symptoms reported Hematologic/Lymphatic: No symptoms reported Neurological/Psychological: No symptoms reported -: Yes All other systems reviewed and negative <JAVI PEREZ - Last Filed: 05/16/18 00:25> Physical Exam <JAVI PEREZ - Last Filed: 05/16/18 00:25> <FIDEL RIVERA - Last Filed: 05/16/18 00:28> - Vital signs Vitals: Temp Pulse Resp BP Pulse Ox 98.3 F 73 16 114/77 99 05/15/18 12:50 05/15/18 12:50 05/15/18 12:50 05/15/18 12:50 05/15/18 12:50 - Notes Notes: GENERAL: Alert, interacts well. No acute distress. HEAD: Normocephalic, atraumatic. EYES: Pupils equal, round, and reactive to light. Extraocular movements intact. ENT: Oral mucosa moist, tongue midline. NECK: Full range of motion. Supple. Trachea midline. LUNGS: Clear to auscultation bilaterally, no wheezes, rales, or rhonchi. No respiratory distress. Some tenderness to palpation along the sternum. HEART: Regular rate and rhythm. No murmurs, gallops, or rubs. ABDOMEN: Soft, non-tender, no guarding, rigidity or rebounding. Non-distended. Bowel sounds present in all 4 quadrants. EXTREMITIES: Moves all 4 extremities spontaneously. NEUROLOGICAL: Alert and oriented x3. Normal speech. PSYCH: Normal affect, normal mood. SKIN: Warm, dry, normal turgor. No rashes or lesions noted. (JAVI PEREZ) Course - Laboratory Result Diagrams: 05/15/18 14:27 05/15/18 14:27 <JAVI PEREZ - Last Filed: 05/16/18 00:25> - Laboratory Result Diagrams: 05/15/18 14:27 05/15/18 14:27 <FIDEL RIVERA - Last Filed: 05/16/18 00:28> - Re-evaluation Re-evalutation: 05/15/18 17:54 CBC unremarkable, CMP unremarkable, cardiac enzymes negative x1, chest x-ray shows no acute process, test is negative. I called [facility] and discussed her case with their staff, they read me the records from yesterday which actually stated that she had been having these symptoms even longer than the past 6 months that she is reporting to me. They checked several tests including ESR, RYAN, thyroid function test and cardiac enzymes. They state that they do not have any record of her calling and talking to them and that they did not call her and give her any results. They state that they do not have any results back whatsoever and it will typically be a few more days until the results are back. They noted that the EKG was documented a sinus bradycardia but otherwise unremarkable. At this time I see no life-threatening etiology, doubt that this is ischemic cardiac disease, there is no indication for further testing or observation at this time. She should follow-up with [facility] as an outpatient for her thyroid function studies. Patient will be discharged to home. Encouraged to take an antacid such as Zantac for her chest pain, states she has a history of heartburn and knows what that feels like and this is not heartburn. Of note the patient is not currently taking any antacids and said that the pain got significantly worse this morning after she ate so I do tend to favor GERD as a possible etiology. (FIDEL RIVERA) - Vital Signs Vital signs: Temp Pulse Resp BP Pulse Ox 98.3 F 73 14 130/71 H 100 05/15/18 12:50 05/15/18 12:50 05/15/18 18:06 05/15/18 18:06 05/15/18 18:06 - EKG Interpretation by Me Additional EKG results interpreted by me: 05/15/18 17:57 EKG shows sinus rhythm rate 65, normal axis, normal intervals, no ST segment elevations or depressions, no T wave inversions per my interpretation. (FIDEL RIEVRA) Discharge <JAVI PEREZ - Last Filed: 05/16/18 00:25> <FIDEL RIVERA - Last Filed: 05/16/18 00:28> - Discharge Clinical Impression: Chest pain of uncertain etiology Condition: Stable Disposition: HOME, SELF-CARE Instructions: Chest Pain of Unclear Cause ([facility]) Additional Instructions: Please take Zantac or generic equivalent ranitidine 75 mg twice a day for the next 2 weeks. Seeing as your pain worsen this morning after eating something that there may be a component of heartburn to this. I think it is worthwhile to do a trial of antacids while you wait to follow-up with [facility]. Please follow-up with them for the results of your thyroid function testing, I do think abnormal thyroid function could definitely be contributing to your problems. Forms: Return to Work Referrals: DONTE WU MD [ACTIVE STAFF] - Follow up as needed Scribe Attestation: 05/16/18 00:27 I personally performed the services described in the documentation, reviewed and edited the documentation which was dictated to the scribe in my presence, and it accurately records my words and actions. (FIDEL RIVERA) Scribe Documentation - Scribe Written by Joy:: Joy Merrill, 05/15/2018 16:03 acting as scribe for :: Margareth <JAVI PEREZ - Last Filed: 05/16/18 00:25>
[2018-05-15 18:10] VITALS: BP 130/71
== END 2018-05-15 18:11 | disposition home or self-care (01) ==
LOC: ER 12:38
DX: R07.9 Chest pain, unspecified (principal); F17.200 Nicotine dependence, unspecified, uncomplicated; Z87.820 Personal history of traumatic brain injury; Z88.2 Allergy status to sulfonamides; Z88.6 Allergy status to analgesic agent; Z88.0 Allergy status to penicillin
CPT/HCPCS: 36415; 71045; 80053; 82550; 82553; 84484; 84703; 85025; 93005; 93010; 99285

== ENCOUNTER 2018-07-26 16:39 | Emergency (ER) | payer OTHER, MEDICARE, MEDICAID ==
[2018-07-26 16:53] VITALS: BP 131/87
[2018-07-26] MEDS ORDERED: IBUPROFEN 600 MG TABLET PO ONE (17:38)
--- NOTE | 2018-07-26 17:46 | RADIOLOGY REPORT (SQ) ---
EXAM DESCRIPTION: FINGER RIGHT COMPLETED DATE/TIME: 07/26/2018 5:20 pm REASON FOR STUDY: 3rd digit pain after finger caught in escalator COMPARISON: 06/06/2011 NUMBER OF VIEWS: Three views. TECHNIQUE: AP, lateral, and oblique images acquired of the right third finger. LIMITATIONS: None. FINDINGS: MINERALIZATION: Normal. BONES: No acute fracture or dislocation. No worrisome bone lesions. SOFT TISSUES: No soft tissue swelling. No foreign body. OTHER: No other significant finding. IMPRESSION: NO RADIOGRAPHIC EVIDENCE OF ACUTE INJURY. COMMENT: SITE OF TRAUMA/COMPLAINT MARKED/STAMP COMPLETED: NOT APPLICABLE. TECHNICAL DOCUMENTATION: JOB ID: [id number] [employer]- All Rights Reserved Reading location - IP/workstation name: [email or web address]
--- NOTE | 2018-07-26 18:08 | ER Document Report ---
HPI - HPI Time Seen by Provider: 07/26/18 17:00 Pain Level: 4 Notes: Patient is an otherwise healthy 28-year-old female who presents with chief complaint of right third digit pain. Patient reports that her finger got stuck under an escalator belt at work. She states that the nurse at her work reduced the finger. She states significant pain since the reduction was done. She has not taken any medications. - REPRODUCTIVE Reproductive: DENIES: : - MUSCULOSKELETAL Musculoskeletal: REPORTS: Extremity pain - right third digit Past Medical History - General Information source: Patient - Social History Smoking Status: Current Every Day Smoker Chew tobacco use (# tins/day): No Drug Abuse: None Family History: Reviewed & Not Pertinent Patient has suicidal ideation: No Patient has homicidal ideation: No Neurological Medical History: Reports: Hx Migraine, Hx Seizures Renal/ Medical History: Denies: Hx Peritoneal Dialysis Skin Medical History: Denies Hx MRSA Psychiatric Medical History: Reports: Hx Anxiety, Hx Attention Deficit Hyperactivity Disorder, Hx Bipolar Disorder, Hx Depression, Hx Obsessive Compulsive Disorder, Hx Post Traumatic Stress Disorder, Hx Schizophrenia Traumatic Medical History: Reports: Hx Traumatic Brain Injury Infectious Medical History: Denies: Hx MRSA Past Surgical History: Reports: Hx Gynecologic Surgery, Hx Oral Surgery - Immunizations Immunizations up to date: Yes Hx Diphtheria, Pertussis, Tetanus Vaccination: Yes Vertical Provider Document - CONSTITUTIONAL Notes: PHYSICAL EXAMINATION: GENERAL: Well-appearing, well-nourished and in no acute distress. HEAD: Atraumatic, normocephalic. EYES: Pupils equal round extraocular movements intact, conjunctiva are normal. ENT: Nares patent NECK: Normal range of motion LUNGS: No respiratory distress Musculoskeletal: Limited range of motion to right third digit, cap refill less than 3 seconds, normal sensation. NEUROLOGICAL: Normal speech, normal gait. PSYCH: Normal mood, normal affect. SKIN: Warm, Dry, normal turgor, no rashes or lesions noted. - INFECTION CONTROL TRAVEL OUTSIDE OF THE [place] IN LAST 30 DAYS: No Course - Re-evaluation Re-evalutation: Splint placed. x-ray negative for any acute findings to include fracture or dislocation. Patient encouraged to follow-up with [facility]. - Vital Signs Vital signs: Temp Pulse Resp BP Pulse Ox 98.4 F 90 18 131/87 H 90 L 07/26/18 16:52 07/26/18 16:52 07/26/18 16:52 07/26/18 16:52 07/26/18 16:52 Procedures - Immobilization Right hand Pre-Proc Neuro Vasc Exam: Normal Immobilizer type: Finger protection Performed by: PCT Post-Proc Neuro Vasc Exam: Normal Alignment checked and good: Yes Discharge - Discharge Clinical Impression: Contusion Qualifiers: Encounter type: initial encounter Contusion area: finger Finger: middle finger Damage to nail status: without damage Laterality: right Qualified Code(s): S60.031A - Contusion of right middle finger without damage to nail, initial encounter Condition: Stable Disposition: HOME, SELF-CARE Additional Instructions: Contusion Your injury has resulted in a contusion -- a crushing of the deep tissues. No injury to important structures was detected during the physician's exam. Contusions vary in the amount of pain they cause, and in the length of time required for healing. Typically, the area will become bruised, and will remain painful to touch for two or three weeks. However, most patients are back to working and playing within a few days. After the initial period of rest and cold-packs, your symptoms (together with the doctor's recommendations) will determine how rapidly you can get back to full activity. Usually this means "do what feels okay, but don't do things that hurt." If re-examination was recommended, it's important to follow up as instructed. Call the doctor or return any time if pain increases, if swelling becomes severe, if you develop numbness or weakness in an injured extremity, or if any other alarming symptoms occur. Ice & Elevation Apply ice packs frequently against the painful area. Many different schedules are recommended, such as "20 minutes on, 20 minutes off" or "one hour ice, two hours rest." If you need to work, you may need to go longer between ice treatments. You should plan to have the area ice packed AT LEAST one-fourth of the time. The ice should be applied over the wrap, tape, or splint, or over a layer of cloth -- not directly against the skin. Some ice bags have a built-in cloth and can be put directly on the skin. Your injured part should be elevated as much as possible over the next 48 hours. Try to keep the injury above the level of the heart. Avoid use of the injured area. Elevation and rest will decrease the swelling. Ibuprofen Ibuprofen is an excellent, safe drug for pain control. In addition, it has potent antiinflammatory effects which are beneficial, especially in the treatment of injuries, arthritis, or tendonitis. It's best to take ibuprofen with food. Persons with ulcer disease or allergy to aspirin should notify their physician of this before taking ibuprofen. Take the medication exactly as prescribed. Don't take additional doses unless instructed to do so by your doctor. If you develop wheezing, shortness of breath, hives, faintness, stomach pain, vomiting, or dark black stools, return for re-evaluation at once. The x-rays were negative for any fracture or dislocation. I believe you probably had a dislocation that was reduced by the nurse at your work. Please take ibuprofen [id number] as directed to help with pain and inflammation. Follow-up with orthopedics if not improving over the next several days. The plain x-rays cannot rule out a ligament or tendon injury. Use the pain medicine I have prescribed for severe pain only. Prescriptions: Oxycodone HCl [Oxy-Ir 5 mg Tablet] 5 mg PO Q6HP PRN #8 tab PRN Reason: Forms: Return to Work Referrals: ODIN MCKEON PA-C [Primary Care Provider] - Follow up as needed
== END 2018-07-26 18:14 | disposition home or self-care (01) ==
LOC: ER 16:39
DX: S60.031A Contusion of right middle finger without damage to nail, initial encounter (principal); M79.644 Pain in right finger(s); W23.0XXA Caught, crushed, jammed, or pinched between moving objects, initial encounter; Y92.63 Factory as the place of occurrence of the external cause; Y99.0 Civilian activity done for income or pay; F17.200 Nicotine dependence, unspecified, uncomplicated
CPT/HCPCS: 99283

== ENCOUNTER 2018-08-08 19:45 | Emergency (ER) | payer OTHER, MEDICARE, MEDICAID ==
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
[2018-08-08] MEDS ORDERED: NAPROXEN 250 MG TABLET PO ONE (23:42)
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
[2018-08-09 00:07] VITALS: BP 120/71
== END 2018-08-09 00:07 | disposition home or self-care (01) ==
LOC: ER 19:45
DX: M79.10 Myalgia, unspecified site (principal); V87.7XXA Person injured in collision between other specified motor vehicles (traffic), initial encounter; F17.200 Nicotine dependence, unspecified, uncomplicated
CPT/HCPCS: 99283

== ENCOUNTER 2018-08-30 05:55 | Emergency (ER) | payer MEDICARE, MEDICAID ==
[2018-08-30] MEDS ORDERED: DEXAMETHASONE SOD PHOS INJ 10 MG/1 ML VIAL IV ONE (06:26)
[2018-08-30] MEDS ORDERED: NORMAL SALINE 1000 ML 1,000 ML IV ONE (06:27)
--- NOTE | 2018-08-30 06:29 | ER Document Report ---
ED Medical Screen (RME) - General Chief Complaint: Allergic Reaction Stated Complaint: THROAT PAIN Time Seen by Provider: 08/30/18 06:23 Primary Care Provider: ODIN MCKEON PA-C [Primary Care Provider] - Follow up as needed Notes: 28-year-old female with chief complaint of very sore throat and difficulty swallowing, started yesterday, much worse today. Although she thought maybe she was having an allergic reaction. She states she had a fever yesterday. Denies cough, congestion, or any other complaints. TRAVEL OUTSIDE OF THE [place] IN LAST 30 DAYS: No - Related Data Allergies/Adverse Reactions: diclofenac [Diclofenac] Allergy (Unknown, Verified 07/26/18 16:44) methylphenidate HCl [From Ritalin] Allergy (Unknown, Verified 07/26/18 16:44) morphine [Morphine] Allergy (Unknown, Verified 07/26/18 16:44) Penicillins Allergy (Unknown, Verified 07/26/18 16:44) risperidone [From Risperdal M-TAB] Allergy (Unknown, Verified 07/26/18 16:44) Sulfa (Sulfonamide Antibiotics) Allergy (Unknown, Verified 07/26/18 16:44) acetaminophen Allergy (Verified 07/26/18 16:44) Past Medical History Neurological Medical History: Reports: Hx Migraine, Hx Seizures Renal/ Medical History: Denies: Hx Peritoneal Dialysis Skin Medical History: Denies Hx MRSA Psychiatric Medical History: Reports: Hx Anxiety, Hx Attention Deficit Hyperactivity Disorder, Hx Bipolar Disorder, Hx Depression, Hx Obsessive Compulsive Disorder, Hx Post Traumatic Stress Disorder, Hx Schizophrenia Traumatic Medical History: Reports: Hx Traumatic Brain Injury Infectious Medical History: Denies: Hx MRSA Past Surgical History: Reports: Hx Gynecologic Surgery, Hx Oral Surgery - Immunizations Immunizations up to date: Yes Hx Diphtheria, Pertussis, Tetanus Vaccination: Yes Physical Exam - Vital signs Vitals: Temp Pulse Resp BP Pulse Ox 99.6 F 85 16 123/74 98 08/30/18 06:07 08/30/18 06:07 08/30/18 06:07 08/30/18 06:07 08/30/18 06:07 - HEENT Pharynx: Other - Exudative pharyngitis with tonsillitis and rash over the uvular area, airway is patent Course - Re-evaluation Re-evalutation: I have greeted and performed a rapid initial assessment of this patient. A comprehensive ED assessment and evaluation of the patient, analysis of test results and completion of the medical decision making process will be conducted by additional ED providers. - Vital Signs Vital signs: Temp Pulse Resp BP Pulse Ox 99.6 F 85 16 123/74 98 08/30/18 06:07 08/30/18 06:07 08/30/18 06:07 08/30/18 06:07 08/30/18 06:07 Doctor's Discharge - Discharge Referrals: ODIN MCKEON PA-C [Primary Care Provider] - Follow up as needed
[2018-08-30 07:50] LABS: ABSOLUTE BASOPHILS # (AUTO) 0.1 10^3/uL (0.0-0.2); ABSOLUTE EOSINOPHILS # (AUTO) 0.2 10^3/uL (0.0-0.6); ABSOLUTE LYMPHOCYTES (AUTO) 1.2 10^3/uL (0.5-4.7); ABSOLUTE MONOCYTES (AUTO) 1.4 10^3/uL (0.1-1.4); ABSOLUTE NEUT (AUTO) 9.1 10^3/uL (1.7-8.2); BASOPHILS % (AUTO) 0.5 % (0-2); EOSINOPHILS % (AUTO) 1.6 % (0-6); HEMOGLOBIN 11.6 g/dL (12.0-15.5); LYMPHOCYTES % (AUTO) 10.2 % (13-45); MEAN CORPUSCULAR HEMOGLOBIN 31.8 pg (27.0-33.4); MEAN CORPUSCULAR HGB CONC 34.2 g/dL (32.0-36.0); MEAN CORPUSCULAR VOLUME 93 fl (80-97); MONOCYTES % (AUTO) 11.6 % (3-13); PLATELET COUNT 183 10^3/uL (150-450); RED BLOOD COUNT 3.66 10^6/uL (3.72-5.28); RED CELL DISTRIBUTION WIDTH 13.1 % (11.5-14.0); SEGMENTED NEUTROPHILS % (AUTO) 76.1 % (42-78); TOTAL CELLS COUNTED % (AUTO) 100 %
[2018-08-30] MEDS ORDERED: KETOROLAC TROMETHAMINE INJ/PF 30 MG/1 ML SDV IV ONE (08:01)
[2018-08-30] MEDS ORDERED: CEFTRIAXONE 1 GM/D5W RTU 1 GM/50 ML RTUPB IV ONE (08:01)
[2018-08-30 08:06] LABS: ALANINE AMINOTRANSFERASE 25 U/L (9-52); ALBUMIN 3.4 g/dL (3.5-5.0); ALKALINE PHOSPHATASE 54 U/L (38-126); ASPARTATE AMINO TRANSFERASE 16 U/L (14-36); BILIRUBIN,DIRECT 0.1 mg/dL (0.0-0.4); BILIRUBIN,TOTAL 0.5 mg/dL (0.2-1.3); BLOOD UREA NITROGEN 11 mg/dL (7-20); CALCIUM 8.4 mg/dL (8.4-10.2); GLUCOSE 76 mg/dL (75-110); TOTAL PROTEIN 5.7 g/dL (6.3-8.2)
[2018-08-30 08:11] LABS: CARBON DIOXIDE 26 mmol/L (22-30); CHLORIDE 111 mmol/L (98-107); SODIUM 141.1 mmol/L (137-145)
[2018-08-30 08:12] LABS: ANION GAP 4 (5-19)
[2018-08-30 09:28] VITALS: BP 98/47
--- NOTE | 2018-09-09 10:46 | ER Document Report ---
Entered by CHADD SPRINGER SCRIBE 08/30/18 0703 Acting as scribe for:ANNA MELENDREZ MD ED ENT - General Chief Complaint: Allergic Reaction Stated Complaint: THROAT PAIN Time Seen by Provider: 08/30/18 06:23 Primary Care Provider: ODIN MCKEON PA-C [Primary Care Provider] - Follow up as needed Mode of Arrival: Ambulatory Information source: Patient Notes: 28-year-old female who presents to the emergency department today with complaints of throat pain with subjective swelling which began this morning at 0530 when she woke up. Patient states that her dad "gave her Tylenol" this morning and she states that she is "allergic to it". She believes that her throat pain/swelling is coming from taking the Tylenol, however, she states her throat was hurting when waking up and then she took the Tylenol. Patient denies fevers. TRAVEL OUTSIDE OF THE [place] IN LAST 30 DAYS: No - Related Data Allergies/Adverse Reactions: diclofenac [Diclofenac] Allergy (Unknown, Verified 07/26/18 16:44) methylphenidate HCl [From Ritalin] Allergy (Unknown, Verified 07/26/18 16:44) morphine [Morphine] Allergy (Unknown, Verified 07/26/18 16:44) Penicillins Allergy (Unknown, Verified 07/26/18 16:44) risperidone [From Risperdal M-TAB] Allergy (Unknown, Verified 07/26/18 16:44) Sulfa (Sulfonamide Antibiotics) Allergy (Unknown, Verified 07/26/18 16:44) acetaminophen Allergy (Verified 07/26/18 16:44) Past Medical History - General Information source: Patient, [facility] Records - Social History Smoking Status: Current Every Day Smoker Cigarette use (# per day): Yes Frequency of alcohol use: None Drug Abuse: None Lives with: Family Family History: Reviewed & Not Pertinent Neurological Medical History: Reports: Hx Migraine, Hx Seizures Psychiatric Medical History: Reports: Hx Anxiety, Hx Attention Deficit Hyperactivity Disorder, Hx Bipolar Disorder, Hx Depression, Hx Obsessive Compulsive Disorder, Hx Post Traumatic Stress Disorder, Hx Schizophrenia Traumatic Medical History: Reports: Hx Traumatic Brain Injury Past Surgical History: Reports: Hx Gynecologic Surgery, Hx Oral Surgery - Immunizations Immunizations up to date: Yes Hx Diphtheria, Pertussis, Tetanus Vaccination: Yes Review of Systems - Review of Systems Constitutional: denies: Fever EENT: See HPI, Throat pain, Throat swelling - subjective, Mouth pain Cardiovascular: No symptoms reported Respiratory: No symptoms reported Gastrointestinal: No symptoms reported Genitourinary: No symptoms reported Female Genitourinary: No symptoms reported Musculoskeletal: No symptoms reported Skin: No symptoms reported Hematologic/Lymphatic: No symptoms reported Neurological/Psychological: No symptoms reported -: Yes All other systems reviewed and negative Physical Exam - Vital signs Vitals: Temp Pulse Resp BP Pulse Ox 99.6 F 85 16 123/74 98 08/30/18 06:07 08/30/18 06:07 08/30/18 06:07 08/30/18 06:07 08/30/18 06:07 - Notes Notes: Physical Exam: General: Alert, appears well. HEENT: Normocephalic. Atraumatic. PERRL. Extraocular movements intact. Oropharynx clear. Anterior cervical lymph nodes are tender to palpation bilaterally, right greater than left. Mild posterior oropharynx erythema with minimal swelling. Airway is patent. Neck: Supple. Non-tender. Respiratory: No respiratory distress. Clear and equal breath sounds bilaterally. Cardiovascular: Regular rate and rhythm. Abdominal: Normal Inspection. Non-tender. No distension. Normal Bowel Sounds. Back: Non-tender. No deformity or step off. Extremities: Moves all four extremities. Upper extremities: Normal inspection. Normal ROM. Lower extremities: Normal inspection. No edema. Normal ROM. Neurological: Normal cognition. AAOx4. Normal speech. Psychological: Normal affect. Normal Mood. Skin: Warm. Dry. Normal color. Course - Vital Signs Vital signs: Temp Pulse Resp BP Pulse Ox 99.6 F 85 16 123/74 98 08/30/18 06:07 08/30/18 06:07 08/30/18 06:07 08/30/18 06:07 08/30/18 06:07 - Laboratory Result Diagrams: 08/30/18 07:40 08/30/18 07:40 Laboratory results interpreted by me: 08/30/18 08/30/18 07:40 07:40 WBC 12.0 H RBC 3.66 L Hgb 11.6 L Hct 34.0 L Lymphocytes % 10.2 L Absolute Neutrophils 9.1 H Chloride 111 H Anion Gap 4 L Total Protein 5.7 L Albumin 3.4 L Discharge - Discharge Clinical Impression: Strep throat Condition: Stable Disposition: HOME, SELF-CARE Additional Instructions: Strep Throat: Your sore throat is due to the streptococcus germ (strep throat). Strep throat usually makes you feel quite ill with fever and aches, headache, swollen sore throat, and tender bumps under the angles of the jaw. Strep throat requires antibiotic treatment. Although the sore throat may go away by itself, complications such as rheumatic fever, kidney disease, or throat abscess can occur. We usually prescribe antibiotics by mouth. Be sure to take the medicine until it's gone. If you stop early, the strep may come back. If you are vomiting, are severely ill, or can't remember to take pills, we can give you an antibiotic shot. Take acetaminophen or ibuprofen for pain and fever. Sip frequent clear liquids, or use popsicles or ice chips. Anesthetic sprays or lozenges may help. Make sure the air in the room is not too dry. Avoid using decongestants or antihistamines. Call your doctor if there is no improvement in three days, or if you have difficulty breathing, increasing throat pain, high fever, rash, or frequent vomiting. RETURN TO THE EMERGENCY ROOM IF ANY NEW OR WORSENING SYMPTOMS. Prescriptions: Cephalexin Monohydrate [Keflex 500 mg Capsule] 500 mg PO TID #30 capsule Referrals: ODIN MCKEON PA-C [Primary Care Provider] - Follow up as needed Scribe Attestation: 08/30/18 08:23 I personally performed the services described in the documentation, reviewed and edited the documentation which was dictated to the scribe in my presence, and it accurately records my words and actions. I personally performed the services described in the documentation, reviewed and edited the documentation which was dictated to the scribe in my presence, and it accurately records my words and actions.
== END 2018-08-30 09:36 | disposition home or self-care (01) ==
LOC: ER 05:55
DX: J02.0 Streptococcal pharyngitis (principal); F17.210 Nicotine dependence, cigarettes, uncomplicated; Z88.8 Allergy status to other drugs, medicaments and biological substances; Z88.5 Allergy status to narcotic agent; Z88.0 Allergy status to penicillin; Z88.2 Allergy status to sulfonamides; Z88.6 Allergy status to analgesic agent
CPT/HCPCS: 99283; 96361; 96374; 96375; 36415; 87880; 85025; 80053; J1885; J7030; J1100

== ENCOUNTER 2018-10-15 09:01 | Emergency (ER) | payer MEDICARE, MEDICAID ==
[2018-10-15 09:07] VITALS: BP 123/67
[2018-10-15] MEDS ORDERED: PREDNISONE 20 MG TABLET PO ONE (10:02)
[2018-10-15] MEDS ORDERED: FAMOTIDINE 20 MG TABLET PO ONE (10:02)
--- NOTE | 2018-10-15 10:10 | ER Document Report ---
ED Skin Rash/Insect Bite/Abscs - General Chief Complaint: Itching Stated Complaint: RASH Time Seen by Provider: 10/15/18 09:53 Primary Care Provider: ODIN MCKEON PA-C [Primary Care Provider] - Follow up as needed TRAVEL OUTSIDE OF THE [place] IN LAST 30 DAYS: Yes - HPI Patient complains to provider of: Skin rash/lesion Onset: Other - 3 weeks Onset/Duration: Persistent Quality of pain: Achy - Intermittently none now Severity: None Pain Level: Denies Skin Character: Rash Quality of rash: Itchy Identify cause: No Exacerbated by: Denies Relieved by: Denies Similar symptoms previously: Yes Recently seen / treated by doctor: No - Related Data Allergies/Adverse Reactions: diclofenac [Diclofenac] Allergy (Unknown, Verified 10/15/18 09:08) methylphenidate HCl [From Ritalin] Allergy (Unknown, Verified 10/15/18 09:08) morphine [Morphine] Allergy (Unknown, Verified 10/15/18 09:08) Penicillins Allergy (Unknown, Verified 10/15/18 09:08) risperidone [From Risperdal M-TAB] Allergy (Unknown, Verified 10/15/18 09:08) Sulfa (Sulfonamide Antibiotics) Allergy (Unknown, Verified 10/15/18 09:08) acetaminophen Allergy (Verified 10/15/18 09:08) Past Medical History - General Information source: Patient - Social History Smoking Status: Current Every Day Smoker Chew tobacco use (# tins/day): No Frequency of alcohol use: None Drug Abuse: Marijuana Lives with: Family Family History: Reviewed & Not Pertinent Patient has suicidal ideation: No Patient has homicidal ideation: No - Past Medical History Cardiac Medical History: Reports: None Pulmonary Medical History: Reports: None EENT Medical History: Reports: None Neurological Medical History: Reports: Hx Migraine, Hx Seizures Endocrine Medical History: Reports: None Renal/ Medical History: Reports: None Malignancy Medical History: Reports: None GI Medical History: Reports: None Musculoskeletal Medical History: Reports None Psychiatric Medical History: Reports: Hx Anxiety, Hx Attention Deficit Hyperactivity Disorder, Hx Bipolar Disorder, Hx Depression, Hx Obsessive Compulsive Disorder, Hx Post Traumatic Stress Disorder, Hx Schizophrenia Traumatic Medical History: Reports: Hx Traumatic Brain Injury Infectious Medical History: Reports: None Past Surgical History: Reports: Hx Dilation and Curettage, Hx Oral Surgery - Immunizations Immunizations up to date: Yes Hx Diphtheria, Pertussis, Tetanus Vaccination: Yes Review of Systems - Review of Systems Constitutional: No symptoms reported EENT: No symptoms reported Cardiovascular: No symptoms reported Respiratory: No symptoms reported Gastrointestinal: No symptoms reported Genitourinary: No symptoms reported Female Genitourinary: No symptoms reported Musculoskeletal: No symptoms reported Skin: Rash Hematologic/Lymphatic: No symptoms reported Neurological/Psychological: No symptoms reported -: Yes All other systems reviewed and negative Physical Exam - Vital signs Vitals: Temp Pulse Resp BP Pulse Ox 98.3 F 81 16 123/67 100 10/15/18 09:06 10/15/18 09:06 10/15/18 09:06 10/15/18 09:06 10/15/18 09:06 Interpretation: Normal - General General appearance: Appears well, Alert - HEENT Head: Normocephalic, Atraumatic Eyes: Normal Pupils: PERRL - Respiratory Respiratory status: No respiratory distress Chest status: Nontender Breath sounds: Normal Chest palpation: Normal - Cardiovascular Rhythm: Regular Heart sounds: Normal auscultation Murmur: No - Abdominal Inspection: Normal Distension: No distension Bowel sounds: Normal Tenderness: Nontender Organomegaly: No organomegaly - Back Back: Normal, Nontender - Extremities General upper extremity: Normal inspection, Nontender, Normal color, Normal ROM, Normal temperature General lower extremity: Normal inspection, Nontender, Normal color, Normal ROM, Normal temperature, Normal weight bearing. No: Pedrito's sign - Neurological Neuro grossly intact: Yes Cognition: Normal Orientation: AAOx4 [place] Coma Scale Eye Opening: Spontaneous Tammy Coma Scale Verbal: Oriented Tammy Coma Scale Motor: Obeys Commands Tammy Coma Scale Total: 15 Speech: Normal Motor strength normal: LUE, RUE, LLE, RLE Sensory: Normal - Psychological Associated symptoms: Normal affect, Normal mood - Skin Skin Temperature: Warm Skin Moisture: Dry Skin Color: Normal Location of irregularity: Neck, Back, Extremities Character of irregularity: Maculopapular - Have been scratched multiple times Irregularity with: Tenderness. negative: Swelling, Thickening, Inflammation Course - Vital Signs Vital signs: Temp Pulse Resp BP Pulse Ox 98.3 F 81 16 123/67 100 10/15/18 09:06 10/15/18 09:06 10/15/18 09:06 10/15/18 09:06 10/15/18 09:06 Discharge - Discharge Clinical Impression: Rash and nonspecific skin eruption Condition: Stable Disposition: HOME, SELF-CARE Additional Instructions: You were seen in the ED today for nonspecific rash. They appeared to be s cattered all over your body. You state you also itch inside and out times 3 weeks. I have given you the name and number of some local survey engineer if this rash does not clear up. Otherwise use [id number] symptom treatment. Rash could very well be some type of insect bites as they are scattered the way they are. Please can stop scratching the rash as this will just cause infection in the site. Ice Packs Apply ice packs frequently against the painful area. Many different schedules are recommended, such as "20 minutes on, 20 minutes off" or "one hour ice, two hours rest." If you need to work, you may need to go longer between ice treatments. You should plan to have the area ice packed AT LEAST one fourth of the time. The ice should be applied over the wrap, tape, or splint, or over a layer of cloth -- not directly against the skin. Some ice bags have a built-in cloth and can be put directly on the skin. STEROID MEDICATION: You have been given a medicine of the cortisone/steroid class. This medication is used to control inflammation or allergy. It is usually only given for a short period of time, until the acute process subsides. There are usually no side effects from short-term use of cortisone-like medications. Some persons feel an increased sense of well-being and are not sleepy at bedtime. Long-term use of cortisone medications is best avoided, unless required for a severe condition. If your condition does not remit, or relapses after the course of corticosteroid medication, you should consult your physician. ACID-SUPPRESSING MEDICATION: You have a prescription for medicine which reduces the stomach's secretion of acid. Examples include Zantac, Tagament, and Pepcid. These drugs are often used to allow healing of ulcers or esophagitis. They may be needed to prevent recurrence of ulcers in some patients, or to prevent damage from acid reflux in the esophagus. Take all medication as prescribed, even after the pain is gone. Regular antacids may be added as needed if you have symptoms while taking this medicine. These medications sometimes are prescribed for allergic reactions because they have anti-histaminic effects and relieve the rash and itching of the reaction. There are usually no side effects from this medication. But, in rare cases and particularly in the elderly, serious problems can occur. Contact your doctor if there is fever, rash, hallucinations, confusion, or unusual bruising. Contact your doctor at once if you develop lightheadedness, black or bloody stool, or bloody vomitus. ANTIHISTAMINES: An antihistamine has been given and/or prescribed to control your symptoms. Antihistamines are used for many reasons, including itching, watering eyes, runny nose, allergic swelling, hives, and insect stings. Antihistamines may cause drowsiness, especially with the first dose. Do not operate machinery or drive while under the effects of the medication. Other common side effects include dry mouth and eyes. In older persons, antihistamines can occasionally cause urinary retention, constipation, and trouble focusing the eyes. Do not combine the medication with alcohol, or with any other medication without talking to your doctor. USE OF DIPHENHYDRAMINE: The use of diphenhydramine (Benadryl) has been recommended to control allergic symptoms. The 25 mg strength is available over- the-counter, as well as the elixir. This antihistamine is used for many symptoms. It's useful for itching, watering eyes and nose, allergic swelling, hives, and insect stings. The medication can be repeated four times daily. Age Elixir (12.5 mg/tsp) 25 mg pill 2-3 yr 1/2 tsp 4-8 yr 1 tsp 9-14 yr 2 tsp one tab adult 1-2 tabs Antihistamines may cause drowsiness, especially with the first dose. Do not operate machinery or drive while under the effects of the medication. Do not combine the medication with alcohol, or with any other medication without talking to your doctor. FOLLOW-UP CARE: If you have been referred to a physician for follow-up care, call the physicians office for an appointment as you were instructed or within the next two days. If you experience worsening or a significant change in your symptoms, notify the physician immediately or return to the Emergency Department at any time for re-evaluation. 1 [facility] [address] [place] [address] Closed today [facility] [address] [place] Prescriptions: Famotidine [Pepcid 20 mg Tablet] 20 mg PO DAILY #4 tablet Prednisone [Deltasone 20 mg Tablet] 20 mg PO DAILY #2 tablet Forms: Smoking Cessation Education, Return to Work Referrals: ODIN MCKEON PA-C [Primary Care Provider] - Follow up as needed
== END 2018-10-15 10:14 | disposition home or self-care (01) ==
LOC: ER 09:01
DX: R21 Rash and other nonspecific skin eruption (principal); F17.200 Nicotine dependence, unspecified, uncomplicated; Z88.8 Allergy status to other drugs, medicaments and biological substances; Z88.5 Allergy status to narcotic agent; Z88.0 Allergy status to penicillin; Z88.2 Allergy status to sulfonamides; Z88.6 Allergy status to analgesic agent
CPT/HCPCS: 99282; A9270 ×2; J7512

== ENCOUNTER 2018-11-11 21:54 | Emergency (ER) | payer MEDICARE, MEDICAID ==
--- NOTE | 2018-11-12 00:44 | ER Document Report ---
ED Medical Screen (RME) - General Chief Complaint: OB Problem (<20wks) Stated Complaint: VAGINAL BLEEDING Time Seen by Provider: 11/12/18 00:38 Primary Care Provider: ODIN MCKEON PA-C [Primary Care Provider] - Follow up as needed TRAVEL OUTSIDE OF THE [place] IN LAST 30 DAYS: No - HPI Notes: 11/12/18 00:41 Patient is a 28-year-old female who presents to the emergency department for vaginal bleeding. Patient states that she is around 7 weeks . 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 Patient states that she was working at [employer] when she bent over and felt something come out of her vagina. Patient reports that there was blood. Patient denies clots. She denies abdominal pain. Patient denies urinary symptoms. When asked about last menstrual period hitesh jackson states "I do not know." Patient complaint of nausea. Patient complains of headache that has been ongoing for 2 days. Denies photosensitivity. Denies vomiting. - Related Data Allergies/Adverse Reactions: diclofenac [Diclofenac] Allergy (Unknown, Verified 10/15/18 09:08) methylphenidate HCl [From Ritalin] Allergy (Unknown, Verified 10/15/18 09:08) morphine [Morphine] Allergy (Unknown, Verified 10/15/18 09:08) Penicillins Allergy (Unknown, Verified 10/15/18 09:08) risperidone [From Risperdal M-TAB] Allergy (Unknown, Verified 10/15/18 09:08) Sulfa (Sulfonamide Antibiotics) Allergy (Unknown, Verified 10/15/18 09:08) acetaminophen Allergy (Verified 10/15/18 09:08) Past Medical History Neurological Medical History: Reports: Hx Migraine, Hx Seizures Renal/ Medical History: Denies: Hx Peritoneal Dialysis Skin Medical History: Denies Hx MRSA Psychiatric Medical History: Reports: Hx Anxiety, Hx Attention Deficit Hyperactivity Disorder, Hx Bipolar Disorder, Hx Depression, Hx Obsessive Compulsive Disorder, Hx Post Traumatic Stress Disorder, Hx Schizophrenia Traumatic Medical History: Reports: Hx Traumatic Brain Injury Infectious Medical History: Denies: Hx MRSA Past Surgical History: Reports: Hx Dilation and Curettage, Hx Gynecologic Surgery, Hx Oral Surgery - Immunizations Immunizations up to date: Yes Hx Diphtheria, Pertussis, Tetanus Vaccination: Yes Physical Exam - Vital signs Vitals: Temp Pulse Resp BP Pulse Ox 97.9 F 75 16 123/79 97 11/11/18 22:45 11/11/18 22:45 11/11/18 22:45 11/11/18 22:45 11/11/18 22:45 - Abdominal Inspection: Normal Distension: No distension Bowel sounds: Normal Tenderness: Nontender Organomegaly: No organomegaly Course - Re-evaluation Re-evalutation: 11/12/18 00:44 Basic lab work and ultrasound ordered. Offered patient Tylenol for her headache, patient states that she is allergic. I have greeted and performed a rapid initial assessment of this patient. A comprehensive ED assessment and evaluation of the patient, analysis of test results and completion of the medical decision making process will be conducted by additional ED providers. - Vital Signs Vital signs: Temp Pulse Resp BP Pulse Ox 97.9 F 75 16 123/79 97 11/11/18 22:45 11/11/18 22:45 11/11/18 22:45 11/11/18 22:45 11/11/18 22:45 Doctor's Discharge - Discharge Referrals: ODIN MCKEON PA-C [Primary Care Provider] - Follow up as needed
[2018-11-12 01:41] LABS: ABSOLUTE BASOPHILS # (AUTO) 0.1 10^3/uL (0.0-0.2); ABSOLUTE EOSINOPHILS # (AUTO) 0.3 10^3/uL (0.0-0.6); ABSOLUTE LYMPHOCYTES (AUTO) 2.7 10^3/uL (0.5-4.7); ABSOLUTE MONOCYTES (AUTO) 0.6 10^3/uL (0.1-1.4); ABSOLUTE NEUT (AUTO) 3.7 10^3/uL (1.7-8.2); BASOPHILS % (AUTO) 0.8 % (0-2); EOSINOPHILS % (AUTO) 3.7 % (0-6); HEMOGLOBIN 13.9 g/dL (12.0-15.5); LYMPHOCYTES % (AUTO) 37.2 % (13-45); MEAN CORPUSCULAR HEMOGLOBIN 30.9 pg (27.0-33.4); MEAN CORPUSCULAR HGB CONC 33.9 g/dL (32.0-36.0); MEAN CORPUSCULAR VOLUME 91 fl (80-97); MONOCYTES % (AUTO) 7.9 % (3-13); PLATELET COUNT 211 10^3/uL (150-450); RED CELL DISTRIBUTION WIDTH 12.5 % (11.5-14.0); SEGMENTED NEUTROPHILS % (AUTO) 50.4 % (42-78); TOTAL CELLS COUNTED % (AUTO) 100 %; WHITE BLOOD COUNT 7.3 10^3/uL (4.0-10.5)
[2018-11-12 02:15] LABS: APPEARANCE,URINE CLOUDY; BILIRUBIN,URINE NEGATIVE (NEGATIVE); CALCIUM OXALATE CRYSTALS,URINE TOO NUMEROUS TO CNT /HPF; COLOR,URINE YELLOW; GLUCOSE, URINE NEGATIVE (NEGATIVE); KETONES,URINE TRACE mg/dL (NEGATIVE); LEUKOCYTE ESTERASE,URINE NEGATIVE (NEGATIVE); NITRITE,URINE NEGATIVE (NEGATIVE); PROTEIN,URINE NEGATIVE (NEGATIVE); URINE SPECIFIC GRAVITY 1.027; UROBILINOGEN,URINE NEGATIVE mg/dL (<2.0)
--- NOTE | 2018-11-12 03:08 | RADIOLOGY REPORT (SQ) ---
EXAM DESCRIPTION: US TRANSVAGINAL COMPLETED DATE/TME: 11/12/2018 00:40 CLINICAL HISTORY: 28 years Female, bleeding with COMPARISON:Oct 31 2017 TECHNIQUE: Transvaginal. LIMITATIONS: None. FINDINGS: No intrauterine gestation confirmed. Endometrial stripe thickness is 0.8 cm with a nongravid appearance at this time. 8.4 cm arcuate uterus, 3.2 cm cervical length, 2.7 cm right ovary, and 3.9 cm left ovary with 2.5 cm complex cystic component appear otherwise unremarkable. No significant free fluid. IMPRESSION: No intrauterine confirmed. Differential diagnosis includes early viable occult intrauterine gestation, gestational loss, and occult ECTOPIC gestation. Recommend 48 -72 hours laboratory/sonographic surveillance.
--- NOTE | 2018-11-12 03:45 | ER Document Report ---
ED GI/ - General Chief Complaint: OB Problem (<20wks) Stated Complaint: VAGINAL BLEEDING Time Seen by Provider: 11/12/18 00:38 Primary Care Provider: FERNANDO CONNORS PA-C [Primary Care Provider] - Follow up as needed TRAVEL OUTSIDE OF THE [place] IN LAST 30 DAYS: No - HPI Notes: 11/12/18 Patient is a 28-year-old female who presents to the emergency department for vaginal bleeding. Patient states that she is around 7 weeks . 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 Patient states that she was working at [employer] when she bent over and felt something come out of her vagina. Patient reports that there was blood. Patient denies clots. She denies abdominal pain. Patient denies urinary symptoms. When asked about last menstrual period patient states "I do not know." Patient complaint of nausea. Patient complains of headache that has been ongoing for 2 days. Denies photosensitivity. Denies vomiting. - Related Data Allergies/Adverse Reactions: diclofenac [Diclofenac] Allergy (Unknown, Verified 10/15/18 09:08) methylphenidate HCl [From Ritalin] Allergy (Unknown, Verified 10/15/18 09:08) morphine [Morphine] Allergy (Unknown, Verified 10/15/18 09:08) Penicillins Allergy (Unknown, Verified 10/15/18 09:08) risperidone [From Risperdal M-TAB] Allergy (Unknown, Verified 10/15/18 09:08) Sulfa (Sulfonamide Antibiotics) Allergy (Unknown, Verified 10/15/18 09:08) acetaminophen Allergy (Verified 10/15/18 09:08) Past Medical History - General Information source: Patient - Social History Smoking Status: Current Every Day Smoker Frequency of alcohol use: None Drug Abuse: None Family History: Reviewed & Not Pertinent - Past Medical History Cardiac Medical History: Reports: None Pulmonary Medical History: Reports: None EENT Medical History: Reports: None Neurological Medical History: Reports: Hx Migraine, Hx Seizures Endocrine Medical History: Reports: None Renal/ Medical History: Reports: None. Denies: Hx Peritoneal Dialysis Malignancy Medical History: Reports: None GI Medical History: Reports: None Musculoskeletal Medical History: Reports None Skin Medical History: Denies Hx MRSA Psychiatric Medical History: Reports: Hx Anxiety, Hx Attention Deficit Hyperactivity Disorder, Hx Bipolar Disorder, Hx Depression, Hx Obsessive Compulsive Disorder, Hx Post Traumatic Stress Disorder, Hx Schizophrenia Traumatic Medical History: Reports: Hx Traumatic Brain Injury Infectious Medical History: Denies: Hx MRSA Past Surgical History: Reports: Hx Dilation and Curettage, Hx Gynecologic Surgery, Hx Oral Surgery - Immunizations Immunizations up to date: Yes Hx Diphtheria, Pertussis, Tetanus Vaccination: Yes Review of Systems - Review of Systems Constitutional: No symptoms reported EENT: No symptoms reported Cardiovascular: No symptoms reported Respiratory: No symptoms reported Gastrointestinal: See HPI Genitourinary: No symptoms reported Female Genitourinary: See HPI Musculoskeletal: No symptoms reported Skin: No symptoms reported Hematologic/Lymphatic: No symptoms reported Neurological/Psychological: No symptoms reported Physical Exam - Vital signs Vitals: Temp Pulse Resp BP Pulse Ox 97.9 F 75 16 123/79 97 11/11/18 22:45 11/11/18 22:45 11/11/18 22:45 11/11/18 22:45 11/11/18 22:45 Interpretation: Normal - Notes Notes: GENERAL: Well-appearing, well-nourished and in no acute distress. HEAD: Atraumatic, normocephalic. EYES: Pupils equal round and reactive to light, extraocular movements intact, sclera anicteric, conjunctiva are normal. ENT: Moist mucous membranes. NECK: Normal range of motion, supple without lymphadenopathy or JVD. LUNGS: Breath sounds clear to auscultation bilaterally and equal. No wheezes rales or rhonchi. HEART: Regular rate and rhythm without murmurs, rubs or gallops. ABDOMEN: Soft, nontender, normoactive bowel sounds. No guarding, no rebound. No masses appreciated. EXTREMITIES: Normal range of motion, no pitting or edema. No clubbing or cyanosis. NEUROLOGICAL: Cranial nerves II through XII grossly intact. Normal speech, normal gait. PSYCH: Normal mood, normal affect. SKIN: Warm, Dry, normal turgor, no rashes or lesions noted. Course - Re-evaluation Re-evalutation: 11/12/18 Upon reevaluation of patient, patient is sitting upright in triage, and in no acute distress, explained to patient that her ultrasound did not show an intrauterine confirmation. Her blood work as well is not consistent with . Patient states that she was seen this past Saturday at her [facility] physician's office who is Fernando Connors. Patient states that at that time she was told she was and that they did a ultrasound in the office. Patient states she has a follow-up appointment with them later today. Informed patient that she needs to keep her follow-up appointment and to have repeat blood work and 48 to 72 hours. Explained to patient that this is important to see if for hormone in her blood becomes higher. Patient verbalized understanding. Patient is calm. Patient states that she is unsure of her last. As they are a regular. Patient reports that her headache has improved since being in the emergency department. Patient states that she does have some vaginal bleeding but that it is very light and light pink in color. Patient states that she is wearing the same pad as she was when she arrived. She denies abdominal pain. Educated patient on strict return precautions to include severe abdominal pain, vomiting, severe vaginal bleeding and the passing of clots, fever, or any worsening symptoms. Patient verbalized understanding and okay w ith being discharged to follow-up with her primary care physician later today. - Vital Signs Vital signs: Temp Pulse Resp BP Pulse Ox 98.5 F 62 16 119/83 100 11/12/18 03:45 11/12/18 03:45 11/12/18 03:45 11/12/18 03:45 11/12/18 03:45 - Laboratory Result Diagrams: 11/12/18 01:20 Laboratory results interpreted by me: 11/12/18 01:40 Urine Ketones TRACE H Urine Blood LARGE H Urine Ascorbic Acid 40 H 11/12/18 Large amount of blood noted in her urine. She does report currently having vaginal bleeding. - Diagnostic Test Radiology reviewed: Reports reviewed Discharge - Discharge Clinical Impression: Vaginal bleeding, Nausea Condition: Stable Disposition: HOME, SELF-CARE Additional Instructions: Today you were seen in the emergency department for vaginal bleeding. Your lab work was not consistent with . Your ultrasound did not show an intrauterine . You do need to follow-up with your primary care physician in 48 to 72 hours to have your blood work repeated to see if your blood levels for and increase. Return to the emergency department for an increase in vaginal bleeding, large clots, severe abdominal pain, or worsening of symptoms. Vaginal Bleeding You are having an episode of abnormal bleeding. Causes of abnormal vaginal bleeding can include miscarriage or tubal , tumors such as cancer or benign fibroids, medication effects, or hormone imbalance. Testing can eliminate unsuspected , tumors, or infection as a cause. "Dysfunctional uterine bleeding" is due to hormone imbalance, and is especially common at times when the normal cycle is disturbed -- whether by recent , use of control pills or hormones, or impending menopause. If the bleeding is innocent, most commonly a short course of hormones is given to restore the uterus to normal. Sometimes, the normal menstrual cycle corrects itself naturally. Sometimes, brief hormone therapy, or even a D&C is required. Your physician will advise you. Treatment for anemia may be required if bleeding is severe. You should rest and avoid intercourse until the bleeding is controlled. Call the doctor or return for re-examination if you feel faint, have increasing pain, or have a major increase in the amount of bleeding. Referrals: FERNANDO CONNORS PA-C [Primary Care Provider] - Follow up as needed
[2018-11-12 05:36] VITALS: BP 119/83
== END 2018-11-12 03:45 | disposition home or self-care (01) ==
LOC: ER 21:54
DX: N93.8 Other specified abnormal uterine and vaginal bleeding (principal); R11.0 Nausea; F17.200 Nicotine dependence, unspecified, uncomplicated; Z88.0 Allergy status to penicillin; Z88.6 Allergy status to analgesic agent; Z88.2 Allergy status to sulfonamides
CPT/HCPCS: 36415; 76817; 81001; 84702; 85025; 86900; 86901; 93976; 99284

== ENCOUNTER 2019-01-19 16:43 | Emergency (ER) | payer MEDICARE, MEDICAID ==
[2019-01-19 17:36] VITALS: BP 123/71
== END 2019-01-19 19:21 | disposition left against medical advice (07) ==
LOC: ER 16:43
DX: Z53.21 Procedure and treatment not carried out due to patient leaving prior to being seen by health care provider (principal)

== ENCOUNTER 2019-04-21 13:24 | Emergency (ER) | payer MEDICARE, MEDICAID ==
[2019-04-21 13:36] VITALS: BP 123/71
--- NOTE | 2019-04-21 13:44 | ER Document Report ---
ED Medical Screen (RME) - General Chief Complaint: Cold Symptoms Stated Complaint: COUGH Time Seen by Provider: 04/21/19 13:29 Primary Care Provider: ODIN MCKEON PA-C [Primary Care Provider] - Follow up as needed Notes: Patient is a 29-year-old female who presents the emergency department with a chief complaint of a cough for the last 3 days. States she also has had some nasal congestion. Patient states that she has felt hot, but does not know if she has had a fever. Patient started on fluticasone 2 days ago. Patient states that she may be and she is allergic to Tylenol. Exam: Rhinorrhea noted. I have greeted and performed a rapid initial assessment of this patient. A comprehensive ED assessment and evaluation of the patient, analysis of test results and completion of medical decision making process will be conducted by an additional ED providers. TRAVEL OUTSIDE OF THE [place] IN LAST 30 DAYS: No - Related Data Allergies/Adverse Reactions: diclofenac [Diclofenac] Allergy (Unknown, Verified 01/19/19 16:47) methylphenidate HCl [From Ritalin] Allergy (Unknown, Verified 01/19/19 16:47) morphine [Morphine] Allergy (Unknown, Verified 01/19/19 16:47) Penicillins Allergy (Unknown, Verified 01/19/19 16:47) risperidone [From Risperdal M-TAB] Allergy (Unknown, Verified 01/19/19 16:47) Sulfa (Sulfonamide Antibiotics) Allergy (Unknown, Verified 01/19/19 16:47) acetaminophen Allergy (Verified 01/19/19 16:47) Past Medical History - Social History Chew tobacco use (# tins/day): No Frequency of alcohol use: None Drug Abuse: None Neurological Medical History: Reports: Hx Migraine, Hx Seizures Renal/ Medical History: Denies: Hx Peritoneal Dialysis Skin Medical History: Denies Hx MRSA Psychiatric Medical History: Reports: Hx Anxiety, Hx Attention Deficit Hyperactivity Disorder, Hx Bipolar Disorder, Hx Depression, Hx Obsessive Compulsive Disorder, Hx Post Traumatic Stress Disorder, Hx Schizophrenia Traumatic Medical History: Reports: Hx Traumatic Brain Injury Infectious Medical History: Denies: Hx MRSA Past Surgical History: Reports: Hx Dilation and Curettage, Hx Gynecologic Surgery, Hx Oral Surgery - Immunizations Immunizations up to date: Yes Hx Diphtheria, Pertussis, Tetanus Vaccination: Yes Physical Exam - Vital signs Vitals: Temp Pulse Resp BP Pulse Ox 97.7 F 78 18 123/71 99 04/21/19 13:29 04/21/19 13:29 04/21/19 13:29 04/21/19 13:29 04/21/19 13:29 Course - Vital Signs Vital signs: Temp Pulse Resp BP Pulse Ox 97.7 F 78 18 123/71 99 04/21/19 13:29 04/21/19 13:29 04/21/19 13:29 04/21/19 13:29 04/21/19 13:29 Doctor's Discharge - Discharge Referrals: ODIN MCKEON PA-C [Primary Care Provider] - Follow up as needed
--- NOTE | 2019-04-21 14:02 | ER Document Report ---
HPI - HPI Time Seen by Provider: 04/21/19 13:29 Pain Level: 3 Context: Patient is a 29-year-old female presents to the emergency department with a chief complaint of cough and congestion. Patient reports she has had a dry cough for about 3 days with nasal congestion. Patient reports clear runny nose. Patient reports starting Flonase 2 days ago. Patient also reports she feels like she has fluid behind the ears. Patient says she feels hot but has not had a fever. Patient denies nausea, vomiting or diarrhea. Patient reports when she feels congested she has a lot of pressure in her sinuses. - REPRODUCTIVE Reproductive: DENIES: : Past Medical History - General Information source: Patient - Social History Smoking Status: Current Every Day Smoker Chew tobacco use (# tins/day): No Frequency of alcohol use: None Drug Abuse: None Lives with: Alone Family History: Reviewed & Not Pertinent Patient has suicidal ideation: No Patient has homicidal ideation: No - Past Medical History Cardiac Medical History: Reports: None Pulmonary Medical History: Reports: None EENT Medical History: Reports: None Neurological Medical History: Reports: Hx Migraine, Hx Seizures Endocrine Medical History: Reports: None Renal/ Medical History: Reports: None. Denies: Hx Peritoneal Dialysis Malignancy Medical History: Reports: None GI Medical History: Reports: None Musculoskeletal Medical History: Reports None Skin Medical History: Reports None, Denies Hx MRSA Psychiatric Medical History: Reports: Hx Anxiety, Hx Attention Deficit Hyperactivity Disorder, Hx Bipolar Disorder, Hx Depression, Hx Obsessive Compulsive Disorder, Hx Post Traumatic Stress Disorder, Hx Schizophrenia Traumatic Medical History: Reports: Hx Traumatic Brain Injury Infectious Medical History: Reports: None. Denies: Hx MRSA Past Surgical History: Reports: Hx Dilation and Curettage, Hx Gynecologic Surgery, Hx Oral Surgery - Immunizations Immunizations up to date: Yes Hx Diphtheria, Pertussis, Tetanus Vaccination: Yes Vertical Provider Document - CONSTITUTIONAL Agree With Documented VS: Yes Exam Limitations: No Limitations General Appearance: No Apparent Distress - INFECTION CONTROL TRAVEL OUTSIDE OF THE [place] IN LAST 30 DAYS: No - HEENT HEENT: Atraumatic, Normal ENT Exam, Normocephalic, PERRLA Notes: TMs bilaterally are pearly brown and able to easily visualize landmarks. There is no erythema, fluid, drainage noted within the ear or behind the TM. There is no mastoid tenderness or tragus tenderness bilaterally. Patient's airway is patent. There is no tonsillar hypertrophy or erythema. Patient does have clear rhinorrhea. No sinus tenderness. - NECK Neck: Normal Inspection - RESPIRATORY Respiratory: Breath Sounds Normal, No Respiratory Distress - CARDIOVASCULAR Cardiovascular: Regular Rate, Regular Rhythm - GI/ABDOMEN Gastrointestinal: Abdomen Soft, Abdomen Non-Tender - BACK Back: Normal Inspection - NEURO Level of Consciousness: Awake, Alert, Appropriate - DERM Integumentary: Warm, Dry, No Rash Course - Re-evaluation Re-evalutation: 04/21/19 14:24 Patient test was negative. I did discuss treatment options regarding her upper respiratory illness. Patient verbalizes understanding. - Vital Signs Vital signs: Temp Pulse Resp BP Pulse Ox 97.7 F 78 18 123/71 99 04/21/19 13:29 04/21/19 13:29 04/21/19 13:29 04/21/19 13:29 04/21/19 13:29 Discharge - Discharge Clinical Impression: Viral URI with cough, Sinus pressure, Chills Condition: Stable Disposition: HOME, SELF-CARE Instructions: Upper Respiratory Illness ([facility]) Additional Instructions: Today you are seen in the emergency department for upper respiratory infection. Your symptoms are consistent with a viral infection and at this time do not require oral antibiotics. Please continue to use the Flonase. You can also initiate Zyrtec which is an antihistamine. Zyrtec is used for allergies. You can also use nasal saline flushes to rinse the sinuses. Return to the emergency department for shortness of breath, difficulty breathing, worsening discomfort, symptoms that persist for over 14 days, high fever. Your test was negative today. You can take ibuprofen as needed for your pain or discomfort. UPPER RESPIRATORY ILLNESS: You have a viral infection of the respiratory passages -- a "cold." This common infection causes nasal congestion, drainage, and often sore throat and cough. It is highly contagious. The disease usually lasts about 10 to 14 days. There is no "cure" for the viral infection -- it must run its course. If there is a complication, such as bacterial infection in the nose, sinuses, middle ear, or bronchial tubes, antibiotics may be required. The antibiotics won't affect the virus. Drink plenty of fluids. A humidifier may help. An expectorant medication or decongestant may make you more comfortable. Use acetaminophen or ibuprofen for fever or aches. See the doctor if fever persists over two days, if there is any significant worsening of your symptoms, or if you simply fail to improve as expected. DECONGESTANT MEDICATION: A decongestant medicine has been prescribed. Often this medicine is combined in the same tablet with an antihistamine or expectorant. This type of medicine is helpful in treating a bad cold or sinus condition, as well as in treatment of the nasal congestion of hay fever. It is not of much benefit for lung infections. Decongestant medicines are related to stimulants. They can cause an increase in blood pressure and heart rate. Persons with heart disease and high blood pressure should not take decongestants without discussing this with the physician. If you develop palpitations, chest pain, headache, or tremors, stop the m edicine and consult your physician. SMOKING: If you smoke, you should stop smoking. The tar and chemicals in cigarette smoke are harmful. Smoking has been shown to cause: emphysema chronic bronchitis lung cancer mouth and throat cancer stomach and pancreas cancer premature aging defects In addition, smoking increases ear and lung infections in children of smokers. FOLLOW-UP CARE: If you have been referred to a physician for follow-up care, call the physicians office for an appointment as you were instructed or within the next two days. If you experience worsening or a significant change in your symptoms, notify the physician immediately or return to the Emergency Department at any time for re-evaluation. Forms: Smoking Cessation Education, Return to Work Referrals: ODIN MCKEON PA-C [Primary Care Provider] - Follow up as needed
== END 2019-04-21 14:35 | disposition home or self-care (01) ==
LOC: ER 13:24
DX: J06.9 Acute upper respiratory infection, unspecified (principal); B97.89 Other viral agents as the cause of diseases classified elsewhere; R51 Headache; R68.83 Chills (without fever); R05 Cough; R09.81 Nasal congestion; R09.89 Other specified symptoms and signs involving the circulatory and respiratory systems; F17.200 Nicotine dependence, unspecified, uncomplicated
CPT/HCPCS: 81025

== ENCOUNTER 2019-05-29 20:35 | Emergency (ER) | payer MEDICARE, MEDICAID ==
[2019-05-29 20:44] VITALS: BP 144/92
[2019-05-29] MEDS ORDERED: NALBUPHINE HCL INJ 10 MG/1 ML AMPULE INJ ONE (21:00)
[2019-05-29] MEDS ORDERED: DIPH/PERTUSS(ACELL)/TETANUS VAC/PF 0.5 ML SYR (>=10YO) IM ONE (21:00)
[2019-05-29] MEDS ORDERED: KETOROLAC TROMETHAMINE INJ/PF 30 MG/1 ML SDV IV ONE (21:06)
[2019-05-29] MEDS ORDERED: CEFAZOLIN 1 GM/D5W RTU 2 GM/100 ML RTUPB IV ONE (21:07)
[2019-05-29] MEDS: CEFAZOLIN 2 GM/D5W RTU 2 GM/50 ML RTUPB IV ONE ×2 (21:10→21:13)
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
[2019-05-29] MEDS ORDERED: NEOMY/BACITRAC ZN/POLY OINT 15 GM TP ONE (21:59)
== END 2019-05-29 22:15 | disposition left against medical advice (07) ==
LOC: ER 20:35
DX: S61.431A Puncture wound without foreign body of right hand, initial encounter (principal); W34.00XA Accidental discharge from unspecified firearms or gun, initial encounter; Y93.89 Activity, other specified; Z88.6 Allergy status to analgesic agent; Z88.8 Allergy status to other drugs, medicaments and biological substances; Z88.5 Allergy status to narcotic agent; Z88.0 Allergy status to penicillin; Z88.2 Allergy status to sulfonamides; Z53.20 Procedure and treatment not carried out because of patient's decision for unspecified reasons
CPT/HCPCS: 99283; 90471; 96375; 96365; 82962; 73110; 90715; J1885; J0690; J3490

== ENCOUNTER 2019-12-27 13:35 | Emergency (ER) | payer MEDICARE, MEDICAID ==
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
[2019-12-27 14:49] LABS: ABSOLUTE BASOPHILS # (AUTO) 0.1 10^3/uL (0.0-0.2); ABSOLUTE EOSINOPHILS # (AUTO) 0.2 10^3/uL (0.0-0.6); ABSOLUTE LYMPHOCYTES (AUTO) 1.7 10^3/uL (0.5-4.7); ABSOLUTE MONOCYTES (AUTO) 0.6 10^3/uL (0.1-1.4); ABSOLUTE NEUT (AUTO) 3.2 10^3/uL (1.7-8.2); APPEARANCE,URINE CLEAR; BILIRUBIN,URINE NEGATIVE (NEGATIVE); COLOR,URINE YELLOW; EOSINOPHILS % (AUTO) 3.5 % (0-6); GLUCOSE, URINE NEGATIVE (NEGATIVE); HEMATOCRIT 38.2 % (36.0-47.0); HEMOGLOBIN 13.3 g/dL (12.0-15.5); KETONES,URINE NEGATIVE (NEGATIVE); LEUKOCYTE ESTERASE,URINE NEGATIVE (NEGATIVE); LYMPHOCYTES % (AUTO) 29.4 % (13-45); MEAN CORPUSCULAR HEMOGLOBIN 31.9 pg (27.0-33.4); MEAN CORPUSCULAR HGB CONC 34.8 g/dL (32.0-36.0); MEAN CORPUSCULAR VOLUME 92 fl (80-97); MONOCYTES % (AUTO) 10.3 % (3-13); NITRITE,URINE NEGATIVE (NEGATIVE); PLATELET COUNT 198 10^3/uL (150-450); PROTEIN,URINE NEGATIVE (NEGATIVE); RED BLOOD COUNT 4.17 10^6/uL (3.72-5.28); RED CELL DISTRIBUTION WIDTH 12.6 % (11.5-14.0); SEGMENTED NEUTROPHILS % (AUTO) 55.8 % (42-78); TOTAL CELLS COUNTED % (AUTO) 100 %; URINE SPECIFIC GRAVITY 1.024; UROBILINOGEN,URINE NEGATIVE mg/dL (<2.0); WHITE BLOOD COUNT 5.8 10^3/uL (4.0-10.5)
[2019-12-27 15:04] LABS: ALBUMIN 4.3 g/dL (3.5-5.0); ALKALINE PHOSPHATASE 51 U/L (38-126); ANION GAP 6 (5-19); ASPARTATE AMINO TRANSFERASE 20 U/L (14-36); BILIRUBIN,TOTAL 0.6 mg/dL (0.2-1.3); BLOOD UREA NITROGEN 12 mg/dL (7-20); CALCIUM 9.5 mg/dL (8.4-10.2); CARBON DIOXIDE 25 mmol/L (22-30); CHLORIDE 108 mmol/L (98-107); POTASSIUM 4.4 mmol/L (3.6-5.0); TOTAL PROTEIN 7.3 g/dL (6.3-8.2)
--- NOTE | 2019-12-27 15:11 | RADIOLOGY REPORT (SQ) ---
EXAM DESCRIPTION: U/S OB TRANSVAG W/DOPPLER IMAGES COMPLETED DATE/TIME: 12/27/2019 2:58 pm REASON FOR STUDY: pain/bleeding COMPARISON: None. TECHNIQUE: Transvaginal static and realtime grayscale images acquired of the pelvis. Additional david cted spectral and color Doppler images recorded. All images stored on PACs. CLINICAL AGE: Unknown BHCG: Pending. LIMITATIONS: None. FINDINGS: UTERUS: No visualized intrauterine . RIGHT ADNEXA: Normal ovary with normal vascular flow. No adnexal free fluid. No adnexal masses. LEFT ADNEXA: Normal ovary with normal vascular flow. No adnexal free fluid. No adnexal masses. FREE FLUID: Trace cul-de-sac free fluid. OTHER: No other significant finding. IMPRESSION: NO VISUALIZED INTRA- OR EXTRAUTERINE . Trace free fluid. ECTOPIC CANNOT BE EXCLUDED. FOLLOW-UP ULTRASOUND AND SERIAL BHCG LEVELS STRONGLY RECOMMENDED TO ACCURATELY ASSESS STATU S. TECHNICAL DOCUMENTATION: JOB ID: [id number] [place]-72 2010 [employer]- All Rights Reserved Reading location - IP/workstation name: [email or web address]
[2019-12-27 15:24] LABS: GLUCOSE 54 mg/dL (75-110)
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
[2019-12-27 16:21] VITALS: BP 113/72
== END 2019-12-27 16:20 | disposition home or self-care (01) ==
LOC: ER 13:35
DX: N93.8 Other specified abnormal uterine and vaginal bleeding (principal); F17.200 Nicotine dependence, unspecified, uncomplicated; Z32.02 Encounter for pregnancy test, result negative; Z88.6 Allergy status to analgesic agent; Z88.0 Allergy status to penicillin; Z88.2 Allergy status to sulfonamides
CPT/HCPCS: 36415; 76817; 80053; 81001; 82962; 84702; 85025; 93976; 99284

== ENCOUNTER 2020-01-27 00:57 | Emergency (ER) | payer MEDICARE, MEDICAID ==
[2020-01-27 03:29] LABS: ABSOLUTE BASOPHILS # (AUTO) 0.1 10^3/uL (0.0-0.2); ABSOLUTE EOSINOPHILS # (AUTO) 0.1 10^3/uL (0.0-0.6); ABSOLUTE LYMPHOCYTES (AUTO) 1.4 10^3/uL (0.5-4.7); ABSOLUTE MONOCYTES (AUTO) 0.7 10^3/uL (0.1-1.4); ABSOLUTE NEUT (AUTO) 10.2 10^3/uL (1.7-8.2); BASOPHILS % (AUTO) 0.5 % (0-2); EOSINOPHILS % (AUTO) 0.5 % (0-6); HEMATOCRIT 36.9 % (36.0-47.0); HEMOGLOBIN 12.6 g/dL (12.0-15.5); LYMPHOCYTES % (AUTO) 11.1 % (13-45); MEAN CORPUSCULAR HEMOGLOBIN 31.4 pg (27.0-33.4); MEAN CORPUSCULAR HGB CONC 34.2 g/dL (32.0-36.0); MEAN CORPUSCULAR VOLUME 92 fl (80-97); MONOCYTES % (AUTO) 5.7 % (3-13); PLATELET COUNT 191 10^3/uL (150-450); RED BLOOD COUNT 4.01 10^6/uL (3.72-5.28); RED CELL DISTRIBUTION WIDTH 12.4 % (11.5-14.0); SEGMENTED NEUTROPHILS % (AUTO) 82.2 % (42-78); TOTAL CELLS COUNTED % (AUTO) 100 %; WHITE BLOOD COUNT 12.4 10^3/uL (4.0-10.5)
[2020-01-27 03:56] LABS: ALBUMIN 4.2 g/dL (3.5-5.0); ALKALINE PHOSPHATASE 64 U/L (38-126); ANION GAP 7 (5-19); ASPARTATE AMINO TRANSFERASE 20 U/L (14-36); BILIRUBIN,TOTAL 0.4 mg/dL (0.2-1.3); BLOOD UREA NITROGEN 11 mg/dL (7-20); CALCIUM 9.6 mg/dL (8.4-10.2); CARBON DIOXIDE 23 mmol/L (22-30); CHLORIDE 108 mmol/L (98-107); GLUCOSE 88 mg/dL (75-110); POTASSIUM 3.7 mmol/L (3.6-5.0); TOTAL PROTEIN 7.2 g/dL (6.3-8.2)
[2020-01-27 03:57] LABS: ALCOHOL < 10 mg/dL (NONE DETECTED)
--- NOTE | 2020-01-27 04:09 | RADIOLOGY REPORT (SQ) ---
EXAM DESCRIPTION: CT HEAD WITHOUT IV CONTRAST COMPLETED DATE/TME: 01/27/2020 02:52 CLINICAL HISTORY: Trauma/pain COMPARISON: 07/07/2015 TECHNIQUE: Axial CT of the head obtained from the skull apex to the skull base without contrast. FINDINGS: No acute intracranial hemorrhage identified. No mass, mass effect, shift of the midline, abnormal extra-axial fluid collection or CT evidence of acute ischemic change identified. The ventricular system is unremarkable. No acute abnormalities of the supratentorial white matter, basal ganglia, cerebellum, or brainstem. The visualized paranasal sinuses and the mastoids are relatively well aerated. No skull fracture identified. Visualized orbits and globes are unremarkable. IMPRESSION: 1. No acute intracranial abnormality identified. This exam was performed according to our departmental dose-optimization program, which includes automated exposure control, adjustment of the mA and/or kV according to patient size and/or use of iterative reconstruction technique.
--- NOTE | 2020-01-27 04:11 | RADIOLOGY REPORT (SQ) ---
EXAM DESCRIPTION: CT CERVICAL SPINE WITHOUT IV CONTRAST COMPLETED DATE/TME: 01/27/2020 02:53 CLINICAL HISTORY: trauma COMPARISON: 07/07/1950 TECHNIQUE: Axial CT of the cervical spine obtained without contrast. FINDINGS: Straightening of the cervical lordosis may be secondary to patient positioning. The atlantoaxial, atlantodental, and occipitoatlantal intervals are preserved. No fracture identified. Vertebral body height preserved. Prevertebral soft tissues are unremarkable. Intervertebral disc height preserved. Visualized skull base is intact. No fracture of the visualized facial bones. Visualized mastoid air cells and paranasal sinuses are well aerated. Visualized thyroid is unremarkable. No cervical lymphadenopathy. No pneumothorax in the visualized lung apices. IMPRESSION: 1. No acute fracture or subluxation of the cervical spine. This exam was performed according to our departmental dose-optimization program, which includes automated exposure control, adjustment of the mA and/or kV according to patient size and/or use of iterative reconstruction technique.
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
--- NOTE | 2020-01-27 04:34 | RADIOLOGY REPORT (SQ) ---
EXAM DESCRIPTION: XR HAND 3 OR MORE VIEWS COMPLETED DATE/TME: 01/27/2020 02:54 CLINICAL HISTORY: 29 years, Female, injury, pain COMPARISON: 07/26/2018 right hand NUMBER OF VIEWS: 3 TECHNIQUE: 3 views of the right hand LIMITATIONS: None. FINDINGS: Negative for acute fracture or dislocation. Soft tissues are unremarkable. Joint spaces are preserved IMPRESSION: No acute osseous abnormality copyright 2010 [employer] All Rights Reserved
--- NOTE | 2020-01-27 05:50 | RADIOLOGY REPORT (SQ) ---
EXAM DESCRIPTION: XR TIBIA FIBULA 2 VIEWS, XR KNEE 4 OR MORE VIEWS COMPLETED DATE/TME: 01/27/2020 04:28 CLINICAL HISTORY: 29 years, Female, injury, pain COMPARISON: None. NUMBER OF VIEWS: Right knee 4 views Right tibia-fibula 2 views TECHNIQUE: 4 views the right knee (AP, lateral, bilateral oblique) and 2 views of the right tibia-fibula were obtained. LIMITATIONS: None. FINDINGS: Right knee 4 views: There is no bone, joint, or definite soft tissue abnormality identified. Right tibia-fibula 2 views: Examination was performed on 3 images. There is no bone, joint, or definite soft tissue abnormality. IMPRESSION: No acute abnormality as above. copyright 2010 [employer]- All Rights Reserved
[2020-01-27 06:01] VITALS: BP 107/64
[2020-01-27] MEDS ORDERED: ONDANSETRON 4 MG TAB.RAPDIS PO ONE (06:21)
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
== END 2020-01-27 06:46 | disposition home or self-care (01) ==
LOC: ER 00:57
DX: S09.90XA Unspecified injury of head, initial encounter (principal); S16.1XXA Strain of muscle, fascia and tendon at neck level, initial encounter; S83.8X1A Sprain of other specified parts of right knee, initial encounter; Y04.0XXA Assault by unarmed brawl or fight, initial encounter; R55 Syncope and collapse; R06.02 Shortness of breath; F17.210 Nicotine dependence, cigarettes, uncomplicated
CPT/HCPCS: 99284; 36415; 80307; 84702; 85025; 80053; 73130; 73564; 73590; 70450; 71250; 72125; A9270; S0119

== ENCOUNTER 2020-03-21 23:45 | Emergency (ER) | payer MEDICARE, MEDICAID ==
[2020-03-22 00:53] LABS: APPEARANCE,URINE SLIGHTLY-CLOUDY; BILIRUBIN,URINE NEGATIVE (NEGATIVE); COLOR,URINE YELLOW; GLUCOSE, URINE NEGATIVE (NEGATIVE); KETONES,URINE NEGATIVE (NEGATIVE); LEUKOCYTE ESTERASE,URINE NEGATIVE (NEGATIVE); NITRITE,URINE NEGATIVE (NEGATIVE); PROTEIN,URINE NEGATIVE (NEGATIVE); UROBILINOGEN,URINE NEGATIVE mg/dL (<2.0)
--- NOTE | 2020-03-22 01:19 | ER Document Report ---
ED Medical Screen (RME) - General Chief Complaint: Vaginal Pain Stated Complaint: PAINFUL URINATION Time Seen by Provider: 03/22/20 01:13 Primary Care Provider: ODIN MCKEON PA-C [Primary Care Provider] - Follow up as needed Notes: HPI: 30-year-old female presenting with vaginal pain over the last 2 weeks with dysuria. Patient states that she is being treated for Enterococcus faecalis by [facility]. States she was given a shot of an antibiotic that did not seem to fix the discomfort with urination was then placed on a 5-day course of an antibiotic that she took once a day which she does not remember the name of. Still with burning with urination. States that when she puts a finger inside the vagina she can feel a small bump that is also mildly uncomfortable and she was worried that she had a cyst or something else that needed to be drained. PHYSICAL EXAMINATION: exam is deferred in triage I have greeted and performed a rapid initial assessment of this patient. A comprehensive ED assessment and evaluation of the patient, analysis of test results and completion of medical decision making process will be conducted by an additional ED providers. TRAVEL OUTSIDE OF THE [place] IN LAST 30 DAYS: No - Related Data Allergies/Adverse Reactions: diclofenac [Diclofenac] Allergy (Unknown, Verified 12/27/19 14:08) methylphenidate HCl [From Ritalin] Allergy (Unknown, Verified 12/27/19 14:08) morphine [Morphine] Allergy (Unknown, Verified 12/27/19 14:08) Penicillins Allergy (Unknown, Verified 12/27/19 14:08) risperidone [From Risperdal M-TAB] Allergy (Unknown, Verified 12/27/19 14:08) Sulfa (Sulfonamide Antibiotics) Allergy (Unknown, Verified 12/27/19 14:08) acetaminophen Allergy (Verified 12/27/19 14:08) Past Medical History Neurological Medical History: Reports: Hx Migraine, Hx Seizures Renal/ Medical History: Denies: Hx Peritoneal Dialysis Skin Medical History: Denies Hx MRSA Psychiatric Medical History: Reports: Hx Anxiety, Hx Attention Deficit Hyperactivity Disorder, Hx Bipolar Disorder, Hx Depression, Hx Obsessive Compulsive Disorder, Hx Post Traumatic Stress Disorder, Hx Schizophrenia Traumatic Medical History: Reports: Hx Traumatic Brain Injury Infectious Medical History: Denies: Hx MRSA Past Surgical History: Reports: Hx Dilation and Curettage, Hx Gynecologic Surgery, Hx Oral Surgery - Immunizations Immunizations up to date: Yes Hx Diphtheria, Pertussis, Tetanus Vaccination: Yes Physical Exam - Vital signs Vitals: Temp Pulse Resp BP Pulse Ox 98.8 F 78 16 122/73 99 03/22/20 00:03/22/20 00:03/22/20 00:03/22/20 00:03/22/20 00:24 Course - Vital Signs Vital signs: Temp Pulse Resp BP Pulse Ox 98.8 F 78 16 122/73 99 03/22/20 00:03/22/20 00:03/22/20 00:03/22/20 00:03/22/20 00:24 Doctor's Discharge - Discharge Referrals: ODIN MCKEON PA-C [Primary Care Provider] - Follow up as needed
[2020-03-22 04:06] VITALS: BP 122/78
== END 2020-03-22 06:30 | disposition left against medical advice (07) ==
LOC: ER 23:45
DX: R10.2 Pelvic and perineal pain (principal); R30.0 Dysuria; Z88.3 Allergy status to other anti-infective agents; Z88.8 Allergy status to other drugs, medicaments and biological substances; Z88.6 Allergy status to analgesic agent; Z88.5 Allergy status to narcotic agent; Z88.0 Allergy status to penicillin; Z53.20 Procedure and treatment not carried out because of patient's decision for unspecified reasons
CPT/HCPCS: 81001; 81025; 99281

== ENCOUNTER 2020-05-10 16:19 | Emergency (ER) | payer MEDICARE, MEDICAID ==
[2020-05-10 16:35] VITALS: BP 131/78
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
[2020-05-10 17:45] LABS: ABSOLUTE BASOPHILS # (AUTO) 0.1 10^3/uL (0.0-0.2); ABSOLUTE LYMPHOCYTES (AUTO) 1.1 10^3/uL (0.5-4.7); ABSOLUTE MONOCYTES (AUTO) 0.8 10^3/uL (0.1-1.4); BASOPHILS % (AUTO) 0.4 % (0-2); EOSINOPHILS % (AUTO) 0.1 % (0-6); HEMOGLOBIN 14.4 g/dL (12.0-15.5); LYMPHOCYTES % (AUTO) 8.3 % (13-45); MEAN CORPUSCULAR HEMOGLOBIN 31.2 pg (27.0-33.4); MEAN CORPUSCULAR HGB CONC 34.3 g/dL (32.0-36.0); MEAN CORPUSCULAR VOLUME 91 fl (80-97); MONOCYTES % (AUTO) 5.8 % (3-13); PLATELET COUNT 218 10^3/uL (150-450); RED BLOOD COUNT 4.61 10^6/uL (3.72-5.28); RED CELL DISTRIBUTION WIDTH 12.8 % (11.5-14.0); SEGMENTED NEUTROPHILS % (AUTO) 85.4 % (42-78); TOTAL CELLS COUNTED % (AUTO) 100 %; WHITE BLOOD COUNT 12.9 10^3/uL (4.0-10.5)
[2020-05-10 18:13] LABS: ALBUMIN 4.6 g/dL (3.5-5.0); ALKALINE PHOSPHATASE 64 U/L (38-126); ANION GAP 9 (5-19); ASPARTATE AMINO TRANSFERASE 26 U/L (14-36); BILIRUBIN,DIRECT 0.1 mg/dL (0.0-0.4); BILIRUBIN,TOTAL 0.7 mg/dL (0.2-1.3); BLOOD UREA NITROGEN 12 mg/dL (7-20); CALCIUM 9.9 mg/dL (8.4-10.2); CARBON DIOXIDE 22 mmol/L (22-30); CHLORIDE 107 mmol/L (98-107); GLUCOSE 95 mg/dL (75-110); POTASSIUM 4.2 mmol/L (3.6-5.0); TOTAL PROTEIN 7.6 g/dL (6.3-8.2)
--- NOTE | 2020-05-10 22:22 | ER Document Report ---
Doctor's Note Notes: 05/10/20 22:20 Patient walked out prior to being placed in room and prior to CTA and a physician evaluation. I attempted to call patient to see if I could convince her to return to the emergency department, but the number that she gave had a calling restrictions on it as per the message I received when I called.
== END 2020-05-10 21:45 | disposition left against medical advice (07) ==
LOC: ER 16:19
DX: M54.2 Cervicalgia (principal); F17.210 Nicotine dependence, cigarettes, uncomplicated
CPT/HCPCS: 36415; 80053; 84702; 85025; 99281

== ENCOUNTER → 2020-06-28 | Outpatient (CLI) | payer MEDICARE, MEDICAID ==
--- NOTE | 2020-06-28 15:13 | RADIOLOGY REPORT (SQ) ---
EXAM DESCRIPTION: HYSTERO CATH/INJECTION; HYSTEROSALPINGOGRAM IMAGES COMPLETED DATE/TIME: 06/28/2020 2:41 pm REASON FOR STUDY: (N97.1)INFERTILITY; (N97.1)FEMALE INFERTILITY COMPARISON: None. PROCEDURE: PRE-PROCEDURE: Procedure was explained to the patient. She was told to expect cramping du ring the procedure, and possible spotting post procedure. PROCEDURE: The cervix was prepped in sterile fashion. Under direct visual inspection, the cervix was cannulated with the hysterosalpingogram catheter and contrast injected. TECHNIQUE: Temporal fluoroscopic images acquired during the procedure stored to PACS. FLUOROSCOPY TIME: 16 seconds. 5 images saved to PACS. LIMITATIONS: None. FINDINGS: UTERUS: Retroflexed. No identified anomalies. No synechia. RIGHT ADNEXA: No contrast filling. LEFT ADNEXA: No contrast filling. POST PROCEDURE: There was considerable discomfort during contrast injection and filling of the uterus . The patient otherwise tolerated the procedure with no adverse effects. IMPRESSION: BILATERAL TUBAL OBSTRUCTION. COMMENT: Study performed and interpreted by the radiologist. Quality ID [id number]: Final reports for procedures using fluoroscopy that document radiation exposure jan jose rafael, or exposure time and number of fluorographic images (if radiation exposure indices are not avail able) TECHNICAL DOCUMENTATION: JOB ID: [id number] 2010 [employer]- All Rights Reserved Reading location - IP/workstation name: [email or web address]
== END ==
LOC: RAD 13:50
PROVIDERS: ATTEND Specialist
DX: N97.9 Female infertility, unspecified (principal)
CPT/HCPCS: 58340; 74740

== ENCOUNTER 2020-07-02 01:00 | Emergency (ER) | payer MEDICARE, MEDICAID ==
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
[2020-07-02] MEDS ORDERED: IBUPROFEN 800 MG TABLET PO ONE (01:51)
[2020-07-02] MEDS ORDERED: LIDOCAINE 2%/EPINEPHRINE INJ 20 ML VIAL INJ ONE (01:55)
[2020-07-02 04:07] VITALS: BP 117/68
== END 2020-07-02 04:07 | disposition home or self-care (01) ==
LOC: ER 01:00
DX: S01.01XA Laceration without foreign body of scalp, initial encounter (principal); S09.90XA Unspecified injury of head, initial encounter; Y04.2XXA Assault by strike against or bumped into by another person, initial encounter; Z88.2 Allergy status to sulfonamides; Z88.6 Allergy status to analgesic agent; Z88.0 Allergy status to penicillin
CPT/HCPCS: 99283; 12001; A9270; J3490

== ENCOUNTER 2020-07-15 13:12 | Emergency (ER) | payer MEDICARE, MEDICAID ==
--- NOTE | 2020-07-15 13:20 | ER Document Report ---
HPI - HPI Time Seen by Provider: 07/15/20 13:19 Onset: Yesterday Onset/Duration: Gradual Severity: Mild Notes: Otherwise healthy 30-year-old female presents emergency department chief complaint of cough and sore throat. Patient reports exposure to an employee with COVID-19. She is not allowed to return to work until she has been tested for Covid. Patient states overall she feels well and has not had any nausea, v omiting, fever, chills, loss of taste or loss of smell. - ROS Systems Reviewed and Negative: Yes All other systems reviewed and negative - EENT EENT: REPORTS: Sore Throat - RESPIRATORY Respiratory: REPORTS: Coughing - REPRODUCTIVE Reproductive: DENIES: : Past Medical History - General Information source: Patient - Social History Smoking Status: Never Smoker Family History: Reviewed & Not Pertinent Neurological Medical History: Reports: Hx Migraine, Hx Seizures Renal/ Medical History: Denies: Hx Peritoneal Dialysis Skin Medical History: Denies Hx MRSA Psychiatric Medical History: Reports: Hx Anxiety, Hx Attention Deficit Hyperactivity Disorder, Hx Bipolar Disorder, Hx Depression, Hx Obsessive Compulsive Disorder, Hx Post Traumatic Stress Disorder, Hx Schizophrenia Traumatic Medical History: Reports: Hx Traumatic Brain Injury Infectious Medical History: Denies: Hx MRSA Past Surgical History: Reports: Hx Dilation and Curettage, Hx Gynecologic Surgery, Hx Oral Surgery - Immunizations Immunizations up to date: Yes Hx Diphtheria, Pertussis, Tetanus Vaccination: Yes Vertical Provider Document - CONSTITUTIONAL Notes: PHYSICAL EXAMINATION: GENERAL: Well-appearing, well-nourished and in no acute distress. HEAD: Atraumatic, normocephalic. EYES: Pupils equal round and reactive to light, extraocular movements intact, conjunctiva are normal. ENT: Nares patent, oropharynx clear without exudates. Moist mucous membranes. NECK: Normal range of motion, supple without lymphadenopathy LUNGS: Breath sounds clear to auscultation bilaterally and equal. No wheezes rales or rhonchi. HEART: Regular rate and rhythm without murmurs ABDOMEN: Soft, nontender, nondistended abdomen. No guarding, no rebound. No masses appreciated. Female : deferred Musculoskeletal: Normal range of motion, no pitting or edema. No cyanosis. NEUROLOGICAL: Cranial nerves grossly intact. Normal speech, normal gait. Normal sensory, motor exams PSYCH: Normal mood, normal affect. SKIN: Warm, Dry, normal turgor, no rashes or lesions noted. - INFECTION CONTROL TRAVEL OUTSIDE OF THE [place] IN LAST 30 DAYS: No Course - Re-evaluation Re-evalutation: Patient appears well, nontoxic, rapid strep negative. Covid pending. Patient be discharged home at this time with strict ED return precautions. - Laboratory Results Critical Laboratory Results Reviewed: No Critical Results - Radiology Results Critical Radiology Results Reviewed: No Critical Results Discharge - Discharge Clinical Impression: Viral illness Condition: Stable Disposition: HOME, SELF-CARE Additional Instructions: If you were prescribed medications during today's visit please take them exactly as prescribed. Push fluids. Get plenty of rest. Tylenol or Motrin for fever and body aches. Good handwashing and stay away from others. The health department will call you with your COVID-19 results. Please follow their guidance. Self quarantine until you have received your COVID-19 results. Return to the emergency department with any new or worsening symptoms such as difficulty breathing, or any other worsening symptoms. Prescriptions: Prednisone [Deltasone 20 mg Tablet] 3 tab PO DAILY 5 Days #15 tablet Forms: Special Work Note Referrals: ODIN MCKEON PA-C [Primary Care Provider] - Follow up as needed
--- NOTE | 2020-07-15 13:41 | RADIOLOGY REPORT (SQ) ---
EXAM DESCRIPTION: CHEST SINGLE VIEW IMAGES COMPLETED DATE/TIME: 07/15/2020 1:32 pm REASON FOR STUDY: body aches, exposed to covid COMPARISON: 05/15/2018 EXAM PARAMETERS: NUMBER OF VIEWS: One view. TECHNIQUE: Single frontal radiographic view of the chest acquired. RADIATION DOSE: NA LIMITATIONS: None. FINDINGS: LUNGS AND PLEURA: No opacities, masses or pneumothorax. No pleural effusion. MEDIASTINUM AND HILAR STRUCTURES: No masses. Contour normal. HEART AND VASCULAR STRUCTURES: Heart normal in size. Normal vasculature. BONES: No acute findings. HARDWARE: None in the chest. OTHER: No other significant finding. IMPRESSION: NO ACUTE RADIOGRAPHIC FINDING IN THE CHEST. TECHNICAL DOCUMENTATION: JOB ID: [id number] 2010 [employer]- All Rights Reserved Reading location - IP/workstation name: [email or web address]
[2020-07-15 15:07] VITALS: BP 118/68
== END 2020-07-15 14:58 | disposition home or self-care (01) ==
LOC: ER 13:12
DX: B34.9 Viral infection, unspecified (principal); R05 Cough; J02.9 Acute pharyngitis, unspecified; Z20.822 Contact with and (suspected) exposure to COVID-19
CPT/HCPCS: 99284; 87070; 87880; 71045; U0003; C9803; 87635